=== PATIENT | male | born 1945 | race Caucasian/White ===

== ENCOUNTER 2018-01-15 11:27 | Inpatient (IN) | payer MEDICARE, SELFPAY ==
[2018-01-15] VITALS (9 sets, daily range): BP systolic 65–170; BP diastolic 43–96; PULSE 71–88; RESP 12–16; TEMP 36.2–36.7; O2SAT 98–100; BMI 40.5; BMI 17.9
--- NOTE | 2018-01-15 11:47 | EKG12_ITS ---
Test Reason : SYNCOPE Blood Pressure : / mmHG Vent. Rate : 077 BPM Atrial Rate : 077 BPM P-R Int : 148 ms QRS Dur : 082 ms QT Int : 372 ms P-R-T Axes : 079 020 -68 degrees QTc Int : 420 ms Normal sinus rhythm Nonspecific ST and T wave abnormality Abnormal ECG Confirmed by DAKOTA BURGOS ([id number]), scientific editor JASPER BEDOYA ([id number] on 01/19/2018 8:31:44 AM Referred By: IZABELA/PUSHPA Confirmed By:DAKOTA BURGOS
--- NOTE | 2018-01-15 11:48 | RAD_ITS ---
STUDY: X-RAY CHEST REASON FOR EXAM: Male, 72 years old. Cough. Generalized illness and weakness. TECHNIQUE: AP and lateral views of the chest. COMPARISON: None. FINDINGS: EKG electrodes are seen. Hyperinflation. The lungs are clear. There is no demonstrated pleural abnormality. Normal size heart. Normal mediastinum and yosvany. Normal visualized pulmonary arteries. Normal visualized aortic arch and descending thoracic aorta. Normal visualized thoracic spine. Normal visualized ribs, clavicles, and shoulders. There is no demonstrated abnormality of the visualized soft tissue structures of the upper abdomen. RAD/Chest PA and Lateral IMPRESSION: Hyperinflation. The lungs are clear. Electronically Signed: Romario Wesley MD at 12:53 EDT Tel [phone], Service support ,
[2018-01-15 12:11] LABS: Absolute Lymphocyte Count 1.36 X10^3/ul (0.83-4.51); Absolute Neutrophil Count 5.7 X10^3/uL (2.0-7.7); Basophil# 0.11 X10^3/uL; Basophil% 1.4 % (0-1); Eosinophil# 0.15 X10^3/uL; Eosinophils% 1.9 % (0-5); Hemoglobin 13.1 g/dl (13.0-16.5); Lymphocyte # 1.36 X10^3/ul (4.0); Lymphocyte % 17.2 % (19-41); Mean Corp Hgb Conc 35.4 g/gl (32-36); Mean Corpuscular Hgb 28.9 pg (27.0-32.0); Mean Corpuscular Volume 81.5 fL (80-94); Mean Platelet Vol. 9.9 fl (6.2-12.0); Monocyte# 0.56 X10^3/uL; Monocyte% 7.1 % (0-10); Neutrophil # 5.72 X10^3/uL (2.7-7.7); Neutrophil % 72.3 % (47-70); Platelet Count 231 K/mm3 (150-450); RBC Distribution Width CV 13.2 % (11.6-14.6); RBC Distribution Width SD 38.4 fl (35.1-43.9); Red Blood Count 4.54 M/mm3 (4.6-6.2); White Blood Count 7.9 K/mm3 (4.4-11.0)
[2018-01-15 12:14] LABS: Prothrombin Time (Protime)PT. 12.9 SECONDS (11.7-14.9)
[2018-01-15 12:15] LABS: Partial Thromboplast Time 23.4 Seconds (24.1-36.2)
[2018-01-15 12:25] LABS: AST(SGOT) 16 U/L (15-37); Alanine Aminotransfer ALT/SGPT 20 U/L (16-61); Albumin, Serum 3.8 g/dL (3.2-5.0); Alkaline Phosphatase 82 U/L (45-117); Anion Gap 9 (5-15); BUN 31 mg/dL (7-18); BUN/Creat Ratio 16.8 RATIO (10-20); Bilirubin, Direct 0.19 mg/dL (0.00-0.30); Calcium,Total 9.6 mg/dL (8.5-10.1); Chloride 101 mmol/L (98-107); Creatinine, Serum 1.84 mg/dL (0.70-1.30); EST Glomerular Filtration Rate 39 mL/min (>60); Est Glom Filt Rate - Afr Amer 47 mL/min (>60); Estimated Creatinine Clearance 36.82 ml/min; Globulin 3.4 g/dL (2.2-4.2); Glucose 227 mg/dL (74-106); Potassium 4.1 mmol/L (3.5-5.1); Protein, Total 7.2 g/dL (6.4-8.2); Sodium Level 138 mmol/L (136-145)
[2018-01-15 12:26] LABS: POSITIVE COUNT NO; POSITIVE DIFFERENTIAL NO; POSITIVE MORPHOLOGY NO
--- NOTE | 2018-01-15 14:22 | NURSING ---
pt attempted to urinate with no success. dr updated to given second liter of fluid and hold of on st cathfor now.
[2018-01-15] MEDS: 0.9% Normal Saline 1,000 ML 500 ML IV (14:26)
--- NOTE | 2018-01-15 14:37 | HP.PCM_ITS ---
Problem List (1) Near syncope Status: Acute History of Present Illness Date of Admission: 01/15/18 Chief Complaint: near syncope The patient is a 72 year old M with a history of diabetes was admitted to the ED on 01/15/2018 with a complaint of near syncope in his PCPs office. Patient states he woke up this morning was just not feeling so good. He checked his blood sugar and was 500 so he took 70 units of his insulin. He subsequently had breakfast and then came to see his PCP for a long-standing appointment. Was in the PCPs office he had a near syncopal attack where according to him he just slumped to the floor. He denied any fever or chills, any palpitations, any dizziness or lightheadedness but said he felt weak. His blood sugar checked in the PCPs office was in the 300s. The EMS was therefore called and he was brought to the ED. Patient has not seen a PCP in about 3 years as according to him his former PCP retired and no blood from the new PCPs office called him to make an appointment. He has however been managing to get his diabetes medication prescription which he claims he has been compliant with. He denied any abdominal pain, diarrhea or vomiting and states eating feels sick apart from feeling weak this morning. In the ED, orthostatics were positive and blood pressure was elevated around 1 46/82 at time of review. Vitals were otherwise stable. Chest x-ray showed no acute cardiopulmonary process. Chemistry was si gnificant for creatinine of 1.84 with baseline being less than 1. This patient was from 3 years ago. CBC was unremarkable initial troponin was negative. EKG showed normal sinus rhythm with nonspecific ST changes. He has been admitted to be managed for dehydration, orthostatic hypotension, poorly controlled diabetes and AKA. [] Past Medical History Allergies No Known Allergies Allergy (Verified 01/15/18 11:57) Home Medications: Ambulatory Orders Medication Instructions Recorded Insulin NPH Human Isophane 20 unit SQ BID 01/15/18 [Novolin N] Insulin Regular, Human [Novolin R] 0 unit SC 4X/DAY 01/15/18 Ketorolac Tromethamine [Acular LS] 1 drop LEFT EYE 4X/DAY 01/15/18 Prednisolone Acetate 1 drop LEFT EYE 4X/DAY 01/15/18 Surgical History: no surgical history Psychiatric History: No pertinent psych hx Lives: Alone Smoking Status: Former smoker Alcohol: None - *Family History Maternal History Items: Unknown - patient adopted Paternal History Items: Unknown - patient adopted Sibling History Items: Unknown - patient adopted Review of Systems Constitutional: Reports: Weakness. Denies: Chills, Fever, Malaise, Weight Change, Fatigue Eyes: Denies: Blurred vision, Double vision HEENT: Denies: Head Aches, Sinus Congestion, Sinus Drainage Cardiovascular: Denies: Chest Pain, Heaviness, Light Headedness, Orthopnea, Palpitations, Syncope Respiratory: Denies: Cough, Shortness of breath at rest, Sputum production Gastrointestinal: Denies: Abdominal Pain, Nausea, Vomiting Genitourinary: Denies: Dysuria Musculoskeletal: Denies: Joint Pain, Joint Tenderness Skin: Denies: Rash, Wounds Neurological: Denies: Numbness, Tingling, Focal weakness Psychiatric: Denies: Anxiety, Depression, Homicidal Ideations, Suicidal Ideations Hematologic/ Lymphatic: Denies: Easy Bruising, Easy Bleeding VTE Information - Inpt Only VTE Present on Admission: No VTE Pharm Prophylaxis ordered?: Yes Patient Problems: Active and Suspected Problems Near syncope (Acute) - Physical Exam General: Alert, Oriented x3, Cooperative, No apparent distress HEENT: Atraumatic, PERRLA, EOMI, Normocephalic Neck: Supple, No JVD, Negative Carotid Bruits Lungs: Clear to auscultation, Normal air movement, No rhonchi, No wheeze, No rales Cardiovascular: Regular rate, Regular Rhythm, Normal S1, Normal S2, No murmurs Abdomen: Bowel Sounds Present, Soft, Non Tender, Non-Distended, No Hepato- splenomegaly Extremities: No clubbing, No cyanosis, No edema, Capillary Refill Less than 3 Seconds Skin: No rashes, No breakdown Musculoskeletal: No Tenderness to Palpation of Joints or Extremities Lymphatic: No Cervical, Supraclavicular, or Inguinal Adenopathy Neurological: Cranial nerves II-XII grossly intact Psych/Mental Status: Normal Affect, Appropriate, Alert and oriented to time, place, person, mood and affect Vital Signs Temp Pulse Resp BP Pulse Ox 98.1 F 71 16 146/82 H 99 01/15/18 11:29 01/15/18 14:23 01/15/18 14:23 01/15/18 14:23 01/15/18 14:23 Oxygen Delivery Method Room Air Weight: 274 lb 11.135 oz Body Mass Index (BMI) 40.5 Laboratory Tests Past 24 Hrs 01/15/18 01/15/18 01/15/18 11:44 11:44 11:44 WBC 7.9 RBC 4.54 L Hgb 13.1 Hct 37.0 L MCV 81.5 MCH 28.9 MCHC 35.4 RDW 13.2 RDW Differential 38.4 Plt Count 231 MPV 9.9 Immature Gran % (Auto) 0.100 Neut % (Auto) 72.3 H Lymph % (Auto) 17.2 L [place] % (Auto) 7.1 Eos % (Auto) 1.9 Baso % (Auto) 1.4 H Absolute Neuts (auto) 5.7 Absolute Lymphs (auto) 1.36 Total Counted Not Reportable PT 12.9 INR 1.0 APTT 23.4 L Sodium 138 Potassium 4.1 Chloride 101 Carbon Dioxide 28.0 Anion Gap 9 BUN 31 H Creatinine 1.84 H Estim Creat Clear Calc 36.82 Est GFR (MDRD) Af Amer 47 L Est GFR (MDRD) Non-Af 39 L BUN/Creatinine Ratio 16.8 Glucose 227 H Calcium 9.6 Total Bilirubin 0.60 Direct Bilirubin 0.19 AST 16 ALT 20 Alkaline Phosphatase 82 Troponin I < 0.015 Total Protein 7.2 Albumin 3.8 Globulin 3.4 Diagnostic Data Chest X-Ray 01/15/18 11:48 IMPRESSION: Hyperinflation. The lungs are clear. Electronically Signed: Romario Wesley MD at 12:53 EDT Tel [phone], Service support , Assessment/Plan All Active Problems Near syncope (Acute) 72-year-old with a history of diabetes presenting with a one day complaint of weakness and near syncopal attack. 1. Near syncope due to orthostatic hypotension * orthostatics were positive in ED; hydrated with IVF * says he has been eating and drinking well; denies any excessive thirst or frequency of urination * vitals otherwise stable * admit to Med surg with telemetry * hydrate with IVF NS @ 150cc/hr x 2 bags * check orthostatics * 2. Orthostatic hypotension due to dehydration * as under 1. encouraged to drink adequate oral fluids * 3. Poorly controlled diabetes mellitus * not followed up with PCP in 3 years * says he takes novolin insulin 17IU bid and also tidwm * blood sugar in 500s this morning * check A1C * accuchecks ACHS * continue currrent dose of insulin and adjust as needed * Check lipid panel * 4. CLAUDINE: * Cr is 1.84; baseline ~ 1 from 2 years ago. * Likely prerenal due to dehydration. * Will hydrate with IV fluid and monitor. * 5. Elevated blood pressure: * At review, blood pressure was 146/82. * However when patient was admitted blood pressure was in the 130s systolic. We will not start BP meds yet as he does not carry a diagnosis of hypertension. * We will continue monitoring any blood pressure remains persistently elevated, will start treatment with BP medication. DVT prophylaxis: heparin Code status: full code Code Visit OBSV E&M: 89132 Initial observation care L3
--- NOTE | 2018-01-15 14:37 | NURSING ---
DR AMADOR BARROW
--- NOTE | 2018-01-15 14:48 | NURSING ---
MED SURG CLAUDINE, DEHYDRATION ANNAM
[2018-01-15 16:55] LABS: Bedside Glucose 216 mg/dL (70-110)
[2018-01-15 16:56] LABS: Cholesterol 196 mg/dL (200); High Density Lipoprotein 43 mg/dL; Triglycerides 187 mg/dL; Very Low Density Lipoprotein 37 mg/dL (5-40)
[2018-01-15 17:11] LABS: Hemoglobin A1c 11.3 % (4.2-6.3)
[2018-01-15] MEDS: Insulin Lispro 100 UNIT/ML INSULN.PEN SQ ×2 (17:13→21:37)
[2018-01-15] MEDS: Insulin NPH Human 100 UNITS/ML PEN 20 UNITS SC (17:19)
--- NOTE | 2018-01-15 17:39 | ED.VISSUMM ---
- ER Visit Summary Date of Service: 01/15/18 Chief Complaint: Dizziness History of Present Illness: The patient is a 72 M presenting for evaluation secondary dizziness. Patient has a underlying history of poorly controlled diabetes and hypertension. He has not seen a doctor in multiple years. Patient was going to a primary care physician to establish care, and had multiple presyncopal episodes in the office. Patient's daughter states that he has been having multiple episodes throughout the course of this week. He denies any chest pain shortness of breath or recent infectious signs or symptoms bloody stools or dark tarry stools. His blood sugars typically run in the 2-300 range. Physical Examination: Cachectic male vital signs notable for blood pressure 170/96. Head normocephalic. No JVD noted. Heart regular rate and rhythm. Lungs sounds clear. Abdomen soft nontender. Back nontender. No peripheral edema. 2+ peripheral pulses x4. Skin normal color no rash. Patient was alert and oriented no lateralizing neurologic deficits. Test Results: Chest x-ray shows hyperinflation. EKG shows nonspecific T wave changes in a sinus rate 77. CBC unremarkable, chemistry shows some acute kidney injury creatinine 1.8 BUN of 31 glucose was 227 coagulation studies normal troponin found to be negative. Emergency Department Course and Treatment: Patient presented for evaluation secondary to presyncopal episodes and primary care office. Patient's orthostats were grossly positive here as he went from a blood pressure of 142 a blood pressure of 60 upon standing and almost passed out. Patient was given 2 L normal saline. He has some evidence of acute kidney injury. Patient will be admitted at this point for further hydration and workup. Disposition: Admission Impression: 1. Dehydration with acute kidney injury This note was generated with [employer] dictation software. It may contain incorrect words, spelling, and punctuation that were not noted in review of the chart prior to signing ED Disposition - Plan for ED Patient: Disposition: Acute Care Hospital [facility] Chief Complaint: Syncope
--- NOTE | 2018-01-15 17:43 | ED.DCSUM_ITS ---
- ER Visit Summary Date of Service: 01/15/18 Chief Complaint: Dizziness History of Present Illness: The patient is a 72 M presenting for evaluation secondary dizziness. Patient has a underlying history of poorly controlled diabetes and hypertension. He has not seen a doctor in multiple years. Patient was going to a primary care physician to establish care, and had multiple presyncopal episodes in the office. Patient's daughter states that he has been having multiple episodes throughout the course of this week. He denies any chest pain shortness of breath or recent infectious signs or symptoms bloody stools or dark tarry stools. His blood sugars typically run in the 2-300 range. Physical Examination: Cachectic male vital signs notable for blood pressure 170/96. Head normocephalic. No JVD noted. Heart regular rate and rhythm. Lungs sounds clear. Abdomen soft nontender. Back nontender. No peripheral edema. 2+ peripheral pulses x4. Skin normal color no rash. Patient was alert and oriented no lateralizing neurologic deficits. Test Results: Chest x-ray shows hyperinflation. EKG shows nonspecific T wave changes in a sinus rate 77. CBC unremarkable, chemistry shows some acute kidney injury creatinine 1.8 BUN of 31 glucose was 227 coagulation studies normal troponin found to be negative. Emergency Department Course and Treatment: Patient presented for evaluation secondary to presyncopal episodes and primary care office. Patient's orthostats were grossly positive here as he went from a blood pressure of 142 a blood pressure of 60 upon standing and almost passed out. Patient was given 2 L normal saline. He has some evidence of acute kidney injury. Patient will be admitted at this point for further hydration and workup. Disposition: Admission Impression: 1. Dehydration with acute kidney injury This note was generated with [employer] dictation software. It may contain incorrect words, spelling, and punctuation that were not noted in review of the chart prior to signing ED Disposition - Plan for ED Patient: Disposition: Acute Care Hospital [facility] Chief Complaint: Syncope
[2018-01-15] MEDS: Glucerna Shake 120 ML LIQUID PO (18:19)
[2018-01-15] MEDS: Heparin Injection (Vial) 5,000 UNIT/ML VIAL 5000 UNIT SC (21:37)
[2018-01-15 21:41] LABS: Bedside Glucose 275 mg/dL (70-110)
[2018-01-16] VITALS (16 sets, daily range): BP systolic 80–190; BP diastolic 57–111; PULSE 71–97; RESP 16–18; TEMP 36.6–36.8; O2SAT 98–100
[2018-01-16] MEDS: 0.9% Normal Saline 1,000 ML 125 ML IV (02:30)
[2018-01-16] MEDS: 0.9% Normal Saline 1,000 ML 999 ML IV (04:20)
[2018-01-16] MEDS: 0.9% NaCl Peripheral Flush Adult/Peds IV (05:08)
[2018-01-16] MEDS: Heparin Injection (Vial) 5,000 UNIT/ML VIAL 5000 UNIT SC ×3 (05:08→21:34)
[2018-01-16 05:32] LABS: Absolute Lymphocyte Count 1.23 X10^3/ul (0.83-4.51); Absolute Neutrophil Count 4.7 X10^3/uL (2.0-7.7); Basophil# 0.06 X10^3/uL; Basophil% 0.9 % (0-1); Eosinophil# 0.17 X10^3/uL; Eosinophils% 2.6 % (0-5); Hematocrit 31.3 % (40-54); Hemoglobin 10.8 g/dl (13.0-16.5); Lymphocyte # 1.23 X10^3/ul (4.0); Lymphocyte % 18.8 % (19-41); Mean Corp Hgb Conc 34.5 g/gl (32-36); Mean Corpuscular Hgb 28.5 pg (27.0-32.0); Mean Corpuscular Volume 82.6 fL (80-94); Mean Platelet Vol. 9.3 fl (6.2-12.0); Monocyte# 0.39 X10^3/uL; Neutrophil # 4.69 X10^3/uL (2.7-7.7); Neutrophil % 71.7 % (47-70); Platelet Count 144 K/mm3 (150-450); RBC Distribution Width CV 13.5 % (11.6-14.6); Red Blood Count 3.79 M/mm3 (4.6-6.2); White Blood Count 6.5 K/mm3 (4.4-11.0)
[2018-01-16 05:34] LABS: POSITIVE COUNT NO; POSITIVE DIFFERENTIAL NO; POSITIVE MORPHOLOGY NO
[2018-01-16 05:50] LABS: Anion Gap 6 (5-15); BUN 28 mg/dL (7-18); BUN/Creat Ratio 23.9 RATIO (10-20); Calcium,Total 7.7 mg/dL (8.5-10.1); Chloride 112 mmol/L (98-107); Creatinine, Serum 1.17 mg/dL (0.70-1.30); EST Glomerular Filtration Rate 65 mL/min (>60); Est Glom Filt Rate - Afr Amer 79 mL/min (>60); Estimated Creatinine Clearance 44.96 ml/min; Glucose 117 mg/dL (74-106); Potassium 3.7 mmol/L (3.5-5.1); Sodium Level 142 mmol/L (136-145)
[2018-01-16] MEDS: 0.9% Normal Saline 1,000 ML 150 ML IV ×3 (08:01→21:33)
[2018-01-16 09:06] LABS: Bedside Glucose 196 mg/dL (70-110)
[2018-01-16] MEDS: Glucerna Shake 120 ML LIQUID PO ×2 (09:15→16:55)
[2018-01-16] MEDS: Insulin Lispro 100 UNIT/ML INSULN.PEN SQ ×4 (09:16→21:37)
[2018-01-16] MEDS: Insulin NPH Human 100 UNITS/ML PEN 20 UNITS SC ×2 (09:17→16:56)
--- NOTE | 2018-01-16 09:18 | PCM.PN.HOSP ---
Patient Problems: Active and Suspected Problems Near syncope (Acute) Subjective: Patient was seen and examined. He denies any symptoms of dizziness or chest pain or shortness of breath. Vitals reviewed shows significant orthostatic hypotension this morning. Denies any new or vomiting. Admits to not drinking enough water Vitals/I&O's: Vital Signs Temp Pulse Resp BP Pulse Ox 98.0 F 78 18 166/88 H 100 01/16/18 09:02 01/16/18 09:02 01/16/18 09:02 01/16/18 09:02 01/16/18 09:02 Oxygen Delivery Method Room Air Weight: 54.885 kg Body Mass Index (BMI) 17.9 Orthostatic Vital Signs Start: 01/16/18 02:17 Freq: q24h Status: Active Protocol: Activity Type Activity Date Activity User E-Sign Co-Sign Detail Recorded Client Recorded Date Recorded By Document 01/16/18 02:17 CDS [id number] 01/16/18 02:23 CDS 01/16/18 02:17 Orthostatic Vitals Standing -Blood Pressure (90/60-120/80) 80/57 L -Extremity Use Right Arm -Pulse Rate (60-100) 85 Sitting -Blood Pressure (90/60-120/80) 139/77 H -Extremity Use Right Arm -Pulse Rate (60-100) 80 Lying -Blood Pressure (90/60-120/80) 164/89 H -Extremity Use Right Arm -Pulse Rate (60-100) 78 Intake and Output for Last 24 Hours 01/14/18 01/15/18 01/16/18 23:59 23:59 23:59 Intake Total 821 / 821 1174 / 1174 Balance 821 / 821 1174 / 1174 General: Alert, Oriented x3, Cooperative, No apparent distress, - - Cachectic HEENT: Atraumatic, PERRLA, EOMI, Normocephalic Oral: Moist Mucosa Neck: Supple, No JVD, Negative Carotid Bruits Lungs: Clear to auscultation, Normal air movement Cardiovascular: Regular rate, Regular Rhythm, Normal S1, Normal S2, No murmurs Abdomen: Bowel Sounds Present, Soft, Non Tender, Non-Distended, No Hepato-splenomegaly Extremities: No edema Skin: No rashes, No breakdown Musculoskeletal: No Tenderness to Palpation of Joints or Extremities Lymphatic: No Cervical, Supraclavicular, or Inguinal Adenopathy Neurological: Cranial nerves II-XII grossly intact, Neuro grossly intact Psych/Mental Status: Normal Affect, Appropriate Laboratory Results 01/15/18 11:44: WBC 7.9, RBC 4.54 L, Hgb 13.1, Hct 37.0 L, MCV 81.5, MCH 28.9, MCHC 35.4, RDW 13.2, RDW Differential 38.4, Plt Count 231, MPV 9.9, Immature Gran % (Auto) 0.100, Neut % (Auto) 72.3 H, Lymph % (Auto) 17.2 L, [place] % (Auto) 7.1, Eos % (Auto) 1.9, Baso % (Auto) 1.4 H, Absolute Neuts (auto) 5.7, Absolute Lymphs (auto) 1.36, Total Counted Not Reportable 01/15/18 11:44: PT 12.9, INR 1.0, APTT 23.4 L 01/15/18 11:44: Sodium 138, Potassium 4.1, Chloride 101, Carbon Dioxide 28.0, Anion Gap 9, BUN 31 H, Creatinine 1.84 H, Estim Creat Clear Calc 36.82, Est GFR (MDRD) Af Amer 47 L, Est GFR (MDRD) Non-Af 39 L, BUN/Creatinine Ratio 16.8, Glucose 227 H, Calcium 9.6, Total Bilirubin 0.60, Direct Bilirubin 0.19, AST 16, ALT 20, Alkaline Phosphatase 82, Troponin I < 0.015, Total Protein 7.2, Albumin 3.8, Globulin 3.4 01/15/18 11:44: Triglycerides 187, Cholesterol 196, LDL Cholesterol 116, VLDL Cholesterol 37, HDL Cholesterol 43 01/15/18 11:44: Hemoglobin A1c 11.3 H 01/15/18 16:32: POC Glucose 216 H 01/15/18 21:33: POC Glucose 275 H 01/16/18 05:05: WBC 6.5, RBC 3.79 L, Hgb 10.8 L, Hct 31.3 L, MCV 82.6, MCH 28.5, MCHC 34.5, RDW 13.5, RDW Differential 41.0, Plt Count 144 L, MPV 9.3, Immature Gran % (Auto) 0.000, Neut % (Auto) 71.7 H, Lymph % (Auto) 18.8 L, [place] % (Auto) 6.0, Eos % (Auto) 2.6, Baso % (Auto) 0.9, Absolute Neuts (auto) 4.7, Absolute Lymphs (auto) 1.23, Total Counted Not Reportable 01/16/18 05:05: Sodium 142, Potassium 3.7, Chloride 112 H, Carbon Dioxide 24.0, Anion Gap 6, BUN 28 H, Creatinine 1.17, Estim Creat Clear Calc 44.96, Est GFR (MDRD) Af Amer 79, Est GFR (MDRD) Non-Af 65, BUN/Creatinine Ratio 23.9 H, Glucose 117 H, Calcium 7.7 L 01/16/18 08:56: POC Glucose 196 H Current Medications Dextrose (D50w Syringe) 0 gm IV X1 PRN; Protocol PRN Reason: Hypoglycemia Glucagon () 1 mg IM .X1 PRN PRN Reason: Hypoglycemia Heparin Sodium (Porcine) (Heparin Na) 5,000 unit SC Q8 [facility] Last Admin: 01/16/18 05:08 Dose: 5,000 unit Sodium Chloride () 1,000 mls @ 150 mls/hr IV .[id number] [facility] Last Admin: 01/16/18 08:01 Dose: 150 mls/hr Influenza Virus Vaccine Quadrival (Fluarix/Fluzone) 0.5 ml IM .ONCE ONE Stop: 01/16/18 10:01 Insulin Human Lispro (Humalog Kwikpen (Bkc)) 0 unit SQ ACHS [facility]; Protocol Last Admin: 01/15/18 21:37 Dose: 6 units Insulin Human NPH (Humulin N (Bkc)) 20 units SC BIDAC [facility] Last Admin: 01/15/18 17:19 Dose: 20 units Ketorolac Tromethamine (Acular Ls) 1 drop LEFT EYE 4X/DAY [facility] Magnesium Hydroxide (Milk Of Magnesia) 30 ml PO DAILY PRN PRN PRN Reason: Constipation Nutritional Formula (Lactose Free) (Glucerna Shake) 120 ml PO 4X/DAY [facility] Last Admin: 01/16/18 09:15 Dose: 120 ml Prednisolone Acetate (Pred Forte Eye Drops (1 Ml)) 1 drop LEFT EYE 4X/DAY [facility] Last Admin: 01/15/18 21:35 Dose: Not Given Sodium Chloride () 5 - 30 ml IV UD PRN PRN Reason: SALINE FLUSH Last Admin: 01/16/18 05:08 Dose: 10 ml Medical Necessity - Tobacco Use Smoking Status: Former smoker Tobacco Use: Cigarettes Assessment/Plan All Active Problems Near syncope (Acute) 72-year-old male with past medical history of type II DM, who comes in with complaints of near syncope in his primary care doctor's office 1. Near syncope/orthostatic hypotension, unclear etiology, likely secondary to dehydration/poor p.o. intake/hyperglycemia Positive orthostatic vitals this morning, continued on IV fluids at 150 cc an hour, will check orthostatic vitals every shift, strict I's and O's, Knee-high MILAN hose 2. CLAUDINE related to dehydration, improving with IV fluids, BMP in a.m. 3. Type II DM, uncontrolled, HbA1c is 11.3, continue on NPH 20 units twice daily as well as insulin sliding scale 4. Malnutrition, moderate, BMI 17.9, flue cleaner is consulted 5. Hypertension, blood pressure is elevated on lying, positively orthostatic on standing, will monitor for today, if remains elevated would start treating 6. DVT prophylaxis with heparin subcu Code Visit Inpatient E&M: 92203 Subs Hosp L2
--- NOTE | 2018-01-16 09:31 | PN_ITS ---
Patient Problems: Active and Suspected Problems Near syncope (Acute) Subjective: Patient was seen and examined. He denies any symptoms of dizziness or chest pain or shortness of breath. Vitals reviewed shows significant orthostatic hypotension this morning. Denies any new or vomiting. Admits to not drinking enough water Vitals/I&O's: Vital Signs Temp Pulse Resp BP Pulse Ox 98.0 F 78 18 166/88 H 100 01/16/18 09:02 01/16/18 09:02 01/16/18 09:02 01/16/18 09:02 01/16/18 09:02 Oxygen Delivery Method Room Air Weight: 54.885 kg Body Mass Index (BMI) 17.9 Orthostatic Vital Signs Start: 01/16/18 02:17 Freq: q24h Status: Active Protocol: Activity Type Activity Date Activity User E-Sign Co-Sign Detail Recorded Client Recorded Date Recorded By Document 01/16/18 02:17 CDS [id number] 01/16/18 02:23 CDS 01/16/18 02:17 Orthostatic Vitals Standing -Blood Pressure (90/60-120/80) 80/57 L -Extremity Use Right Arm -Pulse Rate (60-100) 85 Sitting -Blood Pressure (90/60-120/80) 139/77 H -Extremity Use Right Arm -Pulse Rate (60-100) 80 Lying -Blood Pressure (90/60-120/80) 164/89 H -Extremity Use Right Arm -Pulse Rate (60-100) 78 Intake and Output for Last 24 Hours 01/14/18 01/15/18 01/16/18 23:59 23:59 23:59 Intake Total 821 / 821 1174 / 1174 Balance 821 / 821 1174 / 1174 General: Alert, Oriented x3, Cooperative, No apparent distress, - - Cachectic HEENT: Atraumatic, PERRLA, EOMI, Normocephalic Oral: Moist Mucosa Neck: Supple, No JVD, Negative Carotid Bruits Lungs: Clear to auscultation, Normal air movement Cardiovascular: Regular rate, Regular Rhythm, Normal S1, Normal S2, No murmurs Abdomen: Bowel Sounds Present, Soft, Non Tender, Non-Distended, No Hepato-sple nomegaly Extremities: No edema Skin: No rashes, No breakdown Musculoskeletal: No Tenderness to Palpation of Joints or Extremities Lymphatic: No Cervical, Supraclavicular, or Inguinal Adenopathy Neurological: Cranial nerves II-XII grossly intact, Neuro grossly intact Psych/Mental Status: Normal Affect, Appropriate Laboratory Results 01/15/18 11:44: WBC 7.9, RBC 4.54 L, Hgb 13.1, Hct 37.0 L, MCV 81.5, MCH 28.9, MCHC 35.4, RDW 13.2, RDW Differential 38.4, Plt Count 231, MPV 9.9, Immature Gran % (Auto) 0.100, Neut % (Auto) 72.3 H, Lymph % (Auto) 17.2 L, [place] % (Auto) 7.1, Eos % (Auto) 1.9, Baso % (Auto) 1.4 H, Absolute Neuts (auto) 5.7, Absolute Lymphs (auto) 1.36, Total Counted Not Reportable 01/15/18 11:44: PT 12.9, INR 1.0, APTT 23.4 L 01/15/18 11:44: Sodium 138, Potassium 4.1, Chloride 101, Carbon Dioxide 28.0, Anion Gap 9, BUN 31 H, Creatinine 1.84 H, Estim Creat Clear Calc 36.82, Est GFR (MDRD) Af Amer 47 L, Est GFR (MDRD) Non-Af 39 L, BUN/Creatinine Ratio 16.8, Glucose 227 H, Calcium 9.6, Total Bilirubin 0.60, Direct Bilirubin 0.19, AST 16, ALT 20, Alkaline Phosphatase 82, Troponin I < 0.015, Total Protein 7.2, Albumin 3.8, Globulin 3.4 01/15/18 11:44: Triglycerides 187, Cholesterol 196, LDL Cholesterol 116, VLDL Cholesterol 37, HDL Cholesterol 43 01/15/18 11:44: Hemoglobin A1c 11.3 H 01/15/18 16:32: POC Glucose 216 H 01/15/18 21:33: POC Glucose 275 H 01/16/18 05:05: WBC 6.5, RBC 3.79 L, Hgb 10.8 L, Hct 31.3 L, MCV 82.6, MCH 28.5, MCHC 34.5, RDW 13.5, RDW Differential 41.0, Plt Count 144 L, MPV 9.3, Immature Gran % (Auto) 0.000, Neut % (Auto) 71.7 H, Lymph % (Auto) 18.8 L, [place] % (Auto) 6.0, Eos % (Auto) 2.6, Baso % (Auto) 0.9, Absolute Neuts (auto) 4.7, Absolute Lymphs (auto) 1.23, Total Counted Not Reportable 01/16/18 05:05: Sodium 142, Potassium 3.7, Chloride 112 H, Carbon Dioxide 24.0, Anion Gap 6, BUN 28 H, Creatinine 1.17, Estim Creat Clear Calc 44.96, Est GFR (MDRD) Af Amer 79, Est GFR (MDRD) Non-Af 65, BUN/Creatinine Ratio 23.9 H, Glucose 117 H, Calcium 7.7 L 01/16/18 08:56: POC Glucose 196 H Current Medications Dextrose (D50w Syringe) 0 gm IV X1 PRN; Protocol PRN Reason: Hypoglycemia Glucagon () 1 mg IM .X1 PRN PRN Reason: Hypoglycemia Heparin Sodium (Porcine) (Heparin Na) 5,000 unit SC Q8 REPLACED BY [facility] Last Admin: 01/16/18 05:08 Dose: 5,000 unit Sodium Chloride () 1,000 mls @ 150 mls/hr IV .Q6H40M REPLACED BY [facility] Last Admin: 01/16/18 08:01 Dose: 150 mls/hr Influenza Virus Vaccine Quadrival (Fluarix/Fluzone) 0.5 ml IM .ONCE ONE Stop: 01/16/18 10:01 Insulin Human Lispro (Humalog Kwikpen (Bkc)) 0 unit SQ ACHS REPLACED BY [facility]; Protocol Last Admin: 01/15/18 21:37 Dose: 6 units Insulin Human NPH (Humulin N (Bkc)) 20 units SC BIDAC REPLACED BY [facility] Last Admin: 01/15/18 17:19 Dose: 20 units Ketorolac Tromethamine (Acular Ls) 1 drop LEFT EYE 4X/DAY REPLACED BY [facility] Magnesium Hydroxide (Milk Of Magnesia) 30 ml PO DAILY PRN PRN PRN Reason: Constipation Nutritional Formula (Lactose Free) (Glucerna Shake) 120 ml PO 4X/DAY REPLACED BY [facility] Last Admin: 01/16/18 09:15 Dose: 120 ml Prednisolone Acetate (Pred Forte Eye Drops (1 Ml)) 1 drop LEFT EYE 4X/DAY REPLACED BY [facility] Last Admin: 01/15/18 21:35 Dose: Not Given Sodium Chloride () 5 - 30 ml IV UD PRN PRN Reason: SALINE FLUSH Last Admin: 01/16/18 05:08 Dose: 10 ml Medical Necessity - Tobacco Use Smoking Status: Former smoker Tobacco Use: Cigarettes Assessment/Plan All Active Problems Near syncope (Acute) 72-year-old male with past medical history of type II DM, who comes in with complaints of near syncope in his primary care doctor's office 1. Near syncope/orthostatic hypotension, unclear etiology, likely secondary to dehydration/poor p.o. intake/hyperglycemia Positive orthostatic vitals this morning, continued on IV fluids at 150 cc an hour, will check orthostatic vitals every shift, strict I's and O's, Knee-high MILAN hose 2. CLAUDINE related to dehydration, improving with IV fluids, BMP in a.m. 3. Type II DM, uncontrolled, HbA1c is 11.3, continue on NPH 20 units twice daily as well as insulin sliding scale 4. Malnutrition, moderate, BMI 17.9, carbon blocks press operator is consulted 5. Hypertension, blood pressure is elevated on lying, positively orthostatic on standing, will monitor for today, if remains elevated would start treating 6. DVT prophylaxis with heparin subcu Code Visit Inpatient E&M: 81597 Subs Hosp L2
[2018-01-16 12:35] LABS: Bedside Glucose 337 mg/dL (70-110)
--- NOTE | 2018-01-16 15:07 | NURSING ---
Walking in hill at this time. Denies feeling dizzy or lightheaded.
[2018-01-16 17:06] LABS: Bedside Glucose 231 mg/dL (70-110)
[2018-01-16 22:20] LABS: Bedside Glucose 162 mg/dL (70-110)
[2018-01-16] MEDS: hydrALAZINE 20 MG/ML Vial 5 MG IV (22:30)
[2018-01-17] VITALS (13 sets, daily range): BP systolic 107–178; BP diastolic 58–94; PULSE 74–89; RESP 16–18; TEMP 36.6–36.9; O2SAT 99–100
[2018-01-17] MEDS: amLODIPine 5 MG Tablet PO ×2 (02:22→09:20)
[2018-01-17] MEDS: Heparin Injection (Vial) 5,000 UNIT/ML VIAL 5000 UNIT SC ×3 (06:30→22:34)
[2018-01-17] MEDS: Insulin Lispro 100 UNIT/ML INSULN.PEN SQ ×4 (06:32→22:33)
[2018-01-17 06:51] LABS: Bedside Glucose 226 mg/dL (70-110)
[2018-01-17 06:55] LABS: Absolute Lymphocyte Count 0.95 X10^3/ul (0.83-4.51); Absolute Neutrophil Count 2.8 X10^3/uL (2.0-7.7); Basophil# 0.06 X10^3/uL; Basophil% 1.4 % (0-1); Eosinophil# 0.16 X10^3/uL; Eosinophils% 3.7 % (0-5); Hematocrit 30.5 % (40-54); Hemoglobin 10.4 g/dl (13.0-16.5); Lymphocyte # 0.95 X10^3/ul (4.0); Lymphocyte % 22.2 % (19-41); Mean Corp Hgb Conc 34.1 g/gl (32-36); Mean Corpuscular Hgb 28.7 pg (27.0-32.0); Mean Corpuscular Volume 84.3 fL (80-94); Mean Platelet Vol. 9.8 fl (6.2-12.0); Neutrophil % 65.7 % (47-70); Platelet Count 159 K/mm3 (150-450); RBC Distribution Width CV 13.6 % (11.6-14.6); RBC Distribution Width SD 40.4 fl (35.1-43.9); Red Blood Count 3.62 M/mm3 (4.6-6.2); White Blood Count 4.3 K/mm3 (4.4-11.0)
[2018-01-17 07:02] LABS: Anion Gap 7 (5-15); BUN 17 mg/dL (7-18); BUN/Creat Ratio 17.8 RATIO (10-20); Calcium,Total 7.5 mg/dL (8.5-10.1); Chloride 114 mmol/L (98-107); Creatinine, Serum 0.95 mg/dL (0.70-1.30); EST Glomerular Filtration Rate 83 mL/min (>60); Est Glom Filt Rate - Afr Amer 100 mL/min (>60); Estimated Creatinine Clearance 55.37 ml/min; Glucose 208 mg/dL (74-106); Sodium Level 143 mmol/L (136-145)
[2018-01-17 07:14] LABS: POSITIVE COUNT NO; POSITIVE DIFFERENTIAL NO; POSITIVE MORPHOLOGY NO
[2018-01-17] MEDS: Insulin NPH Human 100 UNITS/ML PEN 25 UNITS SC ×2 (09:13→16:32)
[2018-01-17] MEDS: Glucerna Shake 120 ML LIQUID PO ×3 (09:20→22:43)
[2018-01-17] MEDS: 0.9% Normal Saline 1,000 ML 150 ML IV (09:20)
--- NOTE | 2018-01-17 09:23 | PCM.PN.HOSP ---
Patient Problems: Active and Suspected Problems Near syncope (Acute) Subjective: Patient was seen and examined. Remains orthostatic. Blood pressure on lying is elevated. Denies any chest pain or dizziness or palpitations. He was started on amlodipine 5mg last night. Blood sugars remained fairly uncontrolled Objective: Physical exam: General: Alert, Oriented x3, Cooperative, No apparent distress, - - Cachectic HEENT: Atraumatic, PERRLA, EOMI, Normocephalic Oral: Moist Mucosa Neck: Supple, No JVD, Negative Carotid Bruits Lungs: Clear to auscultation, Normal air movement Cardiovascular: Regular rate, Regular Rhythm, Normal S1, Normal S2, No murmurs Abdomen: Bowel Sounds Present, Soft, Non Tender, Non-Distended, No Hepato-splenomegaly Extremities: No edema Skin: No rashes, No breakdown Musculoskeletal: No Tenderness to Palpation of Joints or Extremities Lymphatic: No Cervical, Supraclavicular, or Inguinal Adenopathy Neurological: Cranial nerves II-XII grossly intact, Neuro grossly intact Psych/Mental Status: Normal Affect, Appropriate Vitals/I&O's: Vital Signs Temp Pulse Resp BP Pulse Ox 98.4 F 87 18 144/62 H 99 01/17/18 08:30 01/17/18 08:30 01/17/18 08:30 01/17/18 08:30 01/17/18 08:30 Oxygen Delivery Method Room Air Weight: 54.885 kg Body Mass Index (BMI) 17.9 Orthostatic Vital Signs Start: 01/16/18 02:17 Freq: q24h Status: Active Protocol: Activity Type Activity Date Activity User E-Sign Co-Sign Detail Recorded Client Recorded Date Recorded By Document 01/17/18 06:26 IN [id number] 01/17/18 06:29 IN 01/17/18 06:26 Orthostatic Vitals Standing -Blood Pressure (90/60-120/80 mm Hg) 107/58 L -Extremity Use Left Arm -Pulse Rate (60-100 beats/min) 86 Sitting -Blood Pressure (90/60-120/80 mm Hg) 142/85 H -Extremity Use Left Arm -Pulse Rate (60-100 beats/min) 88 Lying -Blood Pressure (90/60-120/80 mm Hg) 150/79 H -Extremity Use Left Arm -Pulse Rate (60-100 beats/min) 89 Intake and Output for Last 24 Hours 01/15/18 01/16/18 01/17/18 23:59 23:59 23:59 Intake Total 821 / 821 3957 / 3957 2326 / 2326 Output Total 950 / 950 Balance 821 / 821 3007 / 3007 2326 / 2326 Laboratory Results 01/16/18 12:21: POC Glucose 337 H 01/16/18 16:54: POC Glucose 231 H 01/16/18 21:36: POC Glucose 162 H 01/17/18 05:15: WBC 4.3 L, RBC 3.62 L, Hgb 10.4 L, Hct 30.5 L, MCV 84.3, MCH 28.7, MCHC 34.1, RDW 13.6, RDW Differential 40.4, Plt Count 159, MPV 9.8, Immature Gran % (Auto) 0.000, Neut % (Auto) 65.7, Lymph % (Auto) 22.2, [place] % (Auto) 7.0, Eos % (Auto) 3.7, Baso % (Auto) 1.4 H, Absolute Neuts (auto) 2.8, Absolute Lymphs (auto) 0.95, Total Counted Not Reportable 01/17/18 05:15: Sodium 143, Potassium 4.0, Chloride 114 H, Carbon Dioxide 22.0, Anion Gap 7, BUN 17, Creatinine 0.95, Estim Creat Clear Calc 55.37, Est GFR (MDRD) Af Amer 100, Est GFR (MDRD) Non-Af 83, BUN/Creatinine Ratio 17.8, Glucose 208 H, Calcium 7.5 L 01/17/18 06:32: POC Glucose 226 H Current Medications Amlodipine Besylate (Norvasc) 5 mg PO DAILY [facility] Last Admin: 01/17/18 09:20 Dose: 5 mg Dextrose (D50w Syringe) 0 gm IV X1 PRN; Protocol PRN Reason: Hypoglycemia Glucagon () 1 mg IM .X1 PRN PRN Reason: Hypoglycemia Heparin Sodium (Porcine) (Heparin Na) 5,000 unit SC Q8 [facility] Last Admin: 01/17/18 06:30 Dose: 5,000 unit Hydralazine HCl (Apresoline Iv) 5 mg IV Q6H PRN PRN PRN Reason: BLOOD PRESSURE Last Admin: 01/16/18 22:30 Dose: 5 mg Sodium Chloride () 1,000 mls @ 150 mls/hr IV .Q6H40M [facility] Last Admin: 01/17/18 09:20 Dose: 150 mls/hr Insulin Human Lispro (Humalog Kwikpen (Bkc)) 0 unit SQ ACHS [facility]; Protocol Last Admin: 01/17/18 06:32 Dose: 4 units Insulin Human NPH (Humulin N (Bkc)) 25 units SC BIDAC [facility] Last Admin: 01/17/18 09:13 Dose: 25 units Ketorolac Tromethamine (Ketorolac Tromethamine) 1 ml OP 4X/DAY [facility] Last Admin: 01/17/18 09:10 Dose: Not Given Magnesium Hydroxide (Milk Of Magnesia) 30 ml PO DAILY PRN PRN PRN Reason: Constipation Nutritional Formula (Lactose Free) (Glucerna Shake) 120 ml PO 4X/DAY [facility] Last Admin: 01/17/18 09:20 Dose: 120 ml Prednisolone Acetate (Pred Forte Eye Drops (1 Ml)) 1 drop LEFT EYE 4X/DAY [facility] Last Admin: 01/17/18 09:11 Dose: Not Given Sodium Chloride () 5 - 30 ml IV UD PRN PRN Reason: SALINE FLUSH Last Admin: 01/16/18 05:08 Dose: 10 ml Medical Necessity - Tobacco Use Smoking Status: Former smoker Tobacco Use: Cigarettes Assessment/Plan All Active Problems Near syncope (Acute) 72-year-old male with past medical history of type II DM, who comes in with complaints of near syncope in his primary care doctor's office 1. Near syncope/orthostatic hypotension, unclear etiology, likely secondary to dehydration/poor p.o. intake/hyperglycemia Other differential could be diabetic autonomic neuropathy. He remains orthostatic, on IV fluids, will continue IV fluids for now, recheck orthostatics in 3 hours, if improved, will decrease IV fluid rate, MILAN keller 2. CLAUDINE related to dehydration, resolved 3. Type II DM, uncontrolled, HbA1c is 11.3, sugars are uncontrolled, will increase NPH to 25 units twice daily, continue with Accu-Cheks and insulin sliding scale 4. Malnutrition, moderate, BMI 17.9, on supplements, manager technical training is consulted 5. Hypertension, blood pressure is elevated on lying, positively orthostatic on standing, started on amlodipine 5 mg, will continue same 6. DVT prophylaxis with heparin subcu 7. Disposition: Possible discharge tomorrow if patient appears improved Code Visit Inpatient E&M: [id number] Subs Hosp L2
--- NOTE | 2018-01-17 09:29 | PN_ITS ---
Patient Problems: Active and Suspected Problems Near syncope (Acute) Subjective: Patient was seen and examined. Remains orthostatic. Blood pressure on lying is elevated. Denies any chest pain or dizziness or palpitations. He was started on amlodipine 5mg last night. Blood sugars remained fairly uncontrolled Objective: Physical exam: General: Alert, Oriented x3, Cooperative, No apparent distress, - - Cachectic HEENT: Atraumatic, PERRLA, EOMI, Normocephalic Oral: Moist Mucosa Neck: Supple, No JVD, Negative Carotid Bruits Lungs: Clear to auscultation, Normal air movement Cardiovascular: Regular rate, Regular Rhythm, Normal S1, Normal S2, No murmurs Abdomen: Bowel Sounds Present, Soft, Non Tender, Non-Distended, No Hepato- splenomegaly Extremities: No edema Skin: No rashes, No breakdown Musculoskeletal: No Tenderness to Palpation of Joints or Extremities Lymphatic: No Cervical, Supraclavicular, or Inguinal Adenopathy Neurological: Cranial nerves II-XII grossly intact, Neuro grossly intact Psych/Mental Status: Normal Affect, Appropriate Vitals/I&O's: Vital Signs Temp Pulse Resp BP Pulse Ox 98.4 F 87 18 144/62 H 99 01/17/18 08:30 01/17/18 08:30 01/17/18 08:30 01/17/18 08:30 01/17/18 08:30 Oxygen Delivery Method Room Air Weight: 54.885 kg Body Mass Index (BMI) 17.9 Orthostatic Vital Signs Start: 01/16/18 02:17 Freq: q24h Status: Active Protocol: Activity Type Activity Date Activity User E-Sign Co-Sign Detail Recorded Client Recorded Date Recorded By Document 01/17/18 06:26 TN [id number] 01/17/18 06:29 TN 01/17/18 06:26 Orthostatic Vitals Standing -Blood Pressure (90/60-120/80 mm Hg) 107/58 L -Extremity Use Left Arm -Pulse Rate (60-100 beats/min) 86 Sitting -Blood Pressure (90/60-120/80 mm Hg) 142/85 H -Extremity Use Left Arm -Pulse Rate (60-100 beats/min) 88 Lying -Blood Pressure (90/60-120/80 mm Hg) 150/79 H -Extremity Use Left Arm -Pulse Rate (60-100 beats/min) 89 Intake and Output for Last 24 Hours 01/15/18 01/16/18 01/17/18 23:59 23:59 23:59 Intake Total 821 / 821 3957 / 3957 2326 / 2326 Output Total 950 / 950 Balance 821 / 821 3007 / 3007 2326 / 2326 Laboratory Results 01/16/18 12:21: POC Glucose 337 H 01/16/18 16:54: POC Glucose 231 H 01/16/18 21:36: POC Glucose 162 H 01/17/18 05:15: WBC 4.3 L, RBC 3.62 L, Hgb 10.4 L, Hct 30.5 L, MCV 84.3, MCH 28.7, MCHC 34.1, RDW 13.6, RDW Differential 40.4, Plt Count 159, MPV 9.8, Immature Gran % (Auto) 0.000, Neut % (Auto) 65.7, Lymph % (Auto) 22.2, [place] % (Auto) 7.0, Eos % (Auto) 3.7, Baso % (Auto) 1.4 H, Absolute Neuts (auto) 2.8, Absolute Lymphs (auto) 0.95, Total Counted Not Reportable 01/17/18 05:15: Sodium 143, Potassium 4.0, Chloride 114 H, Carbon Dioxide 22.0, Anion Gap 7, BUN 17, Creatinine 0.95, Estim Creat Clear Calc 55.37, Est GFR (MDRD) Af Amer 100, Est GFR (MDRD) Non-Af 83, BUN/Creatinine Ratio 17.8, Glucose 208 H, Calcium 7.5 L 01/17/18 06:32: POC Glucose 226 H Current Medications Amlodipine Besylate (Norvasc) 5 mg PO DAILY [facility] Last Admin: 01/17/18 09:20 Dose: 5 mg Dextrose (D50w Syringe) 0 gm IV X1 PRN; Protocol PRN Reason: Hypoglycemia Glucagon () 1 mg IM .X1 PRN PRN Reason: Hypoglycemia Heparin Sodium (Porcine) (Heparin Na) 5,000 unit SC Q8 [facility] Last Admin: 01/17/18 06:30 Dose: 5,000 unit Hydralazine HCl (Apresoline Iv) 5 mg IV Q6H PRN PRN PRN Reason: BLOOD PRESSURE Last Admin: 01/16/18 22:30 Dose: 5 mg Sodium Chloride () 1,000 mls @ 150 mls/hr IV .Q6H40M [facility] Last Admin: 01/17/18 09:20 Dose: 150 mls/hr Insulin Human Lispro (Humalog Kwikpen (Bkc)) 0 unit SQ ACHS [facility]; Protocol Last Admin: 01/17/18 06:32 Dose: 4 units Insulin Human NPH (Humulin N (Bkc)) 25 units SC BIDAC [facility] Last Admin: 01/17/18 09:13 Dose: 25 units Ketorolac Tromethamine (Ketorolac Tromethamine) 1 ml OP 4X/DAY [facility] Last Admin: 01/17/18 09:10 Dose: Not Given Magnesium Hydroxide (Milk Of Magnesia) 30 ml PO DAILY PRN PRN PRN Reason: Constipation Nutritional Formula (Lactose Free) (Glucerna Shake) 120 ml PO 4X/DAY [facility] Last Admin: 01/17/18 09:20 Dose: 120 ml Prednisolone Acetate (Pred Forte Eye Drops (1 Ml)) 1 drop LEFT EYE 4X/DAY [facility] Last Admin: 01/17/18 09:11 Dose: Not Given Sodium Chloride () 5 - 30 ml IV UD PRN PRN Reason: SALINE FLUSH Last Admin: 01/16/18 05:08 Dose: 10 ml Medical Necessity - Tobacco Use Smoking Status: Former smoker Tobacco Use: Cigarettes Assessment/Plan All Active Problems Near syncope (Acute) 72-year-old male with past medical history of type II DM, who comes in with complaints of near syncope in his primary care doctor's office 1. Near syncope/orthostatic hypotension, unclear etiology, likely secondary to dehydration/poor p.o. intake/hyperglycemia Other differential could be diabetic autonomic neuropathy. He remains orthostatic, on IV fluids, will continue IV fluids for now, recheck orthostatics in 3 hours, if improved, will decrease IV fluid rate, MILAN keller 2. CLAUDINE related to dehydration, resolved 3. Type II DM, uncontrolled, HbA1c is 11.3, sugars are uncontrolled, will increase NPH to 25 units twice daily, continue with Accu-Cheks and insulin sliding scale 4. Malnutrition, moderate, BMI 17.9, on supplements, drawing box tender is consulted 5. Hypertension, blood pressure is elevated on lying, positively orthostatic on standing, started on amlodipine 5 mg, will continue same 6. DVT prophylaxis with heparin subcu 7. Disposition: Possible discharge tomorrow if patient appears improved Code Visit Inpatient E&M: [id number] Subs Hosp L2
[2018-01-17 11:41] LABS: Bedside Glucose 291 mg/dL (70-110)
[2018-01-17] MEDS: KETOROLAC TROMETHAMINE 5 ML DROPS 1 ML OP ×3 (15:59→22:32)
[2018-01-17] MEDS: prednisoLONE eye drops (1 mL) 1 DROP OPTH.BTL 1 DRP LEFT EYE ×3 (16:00→22:33)
[2018-01-17 16:11] LABS: Bedside Glucose 268 mg/dL (70-110)
[2018-01-17] MEDS: 0.9% Normal Saline 1,000 ML 75 ML IV (16:32)
[2018-01-17 22:51] LABS: Bedside Glucose 174 mg/dL (70-110)
[2018-01-18] VITALS (7 sets, daily range): BP systolic 137–181; BP diastolic 77–92; PULSE 75–86; RESP 16; TEMP 36.6–37; O2SAT 99
[2018-01-18] MEDS: Heparin Injection (Vial) 5,000 UNIT/ML VIAL 5000 UNIT SC (05:06)
[2018-01-18] MEDS: amLODIPine 5 MG Tablet PO ×2 (05:07→10:09)
[2018-01-18] MEDS: 0.9% Normal Saline 1,000 ML 75 ML IV (05:08)
[2018-01-18] MEDS: prednisoLONE eye drops (1 mL) 1 DROP OPTH.BTL 1 DRP LEFT EYE (05:13)
[2018-01-18] MEDS: KETOROLAC TROMETHAMINE 5 ML DROPS 1 ML OP (05:15)
[2018-01-18] MEDS: Insulin NPH Human 100 UNITS/ML PEN 25 UNITS SC (08:14)
[2018-01-18] MEDS: Insulin Lispro 100 UNIT/ML INSULN.PEN SQ (08:14)
[2018-01-18 08:35] LABS: Bedside Glucose 190 mg/dL (70-110)
--- NOTE | 2018-01-18 09:01 | PCM.DC ---
- Discharge Diagnoses Current Active Problems: Current Active and Chronic Problems Near syncope (Acute) Reason(s) for Visit for Discharge Instructions: Near syncope, orthostatic hypotension You will use the following diet at home:: Calorie/Carbohydrate Controlled (specify 1200, 1400, etc), Cardiac Your food should be the consistency of: Regular Your liquids should be the consistency of: Regular/Thin Discharge Activity: Return to Normal Activity Additional Instructions: Note the changes to your insulin. Keep a log of your blood sugars and show a log of your blood sugars to your physician. Wear your MILAN hoses, 12 hours on, 12 hours off. Be careful moving from lying to sitting to standing. Continue to keep yourself hydrated. Allergies/Adverse Reactions: Allergies No Known Allergies Allergy (Verified 01/15/18 11:57) Medications to take at Discharge Insulin Regular, Human [Novolin R] 0 unit SC 4X/DAY 01/15/18 Ketorolac Tromethamine [Acular LS] 1 drop LEFT EYE 4X/DAY 01/15/18 Prednisolone Acetate 1 drop LEFT EYE 4X/DAY 01/15/18 Amlodipine [Norvasc] 5 mg PO DAILY #30 tablet 01/18/18 Glucerna Shake 120 ml PO 4X/DAY #100 liquid 01/18/18 Insulin NPH Human [Humulin N Pen] 25 units SC BIDAC pen 01/18/18 The following prescriptions were given: Amlodipine [Norvasc] 5 mg PO DAILY #30 tablet Glucerna Shake 120 ml PO 4X/DAY #100 liquid Primary Care Physician: Deepak Valerio MD [Primary Care Provider] - Please follow up with your Primary Care Physician in: in a week as scheduled Test Results: Test results from this visit will be discussed in further detail at your follow-up appointment, if applicable. When: Primary drug enforcement administration agent as scheduled Proposed Discharge Date: 01/18/18
--- NOTE | 2018-01-18 09:05 | DCINST_ITS ---
- Discharge Diagnoses Current Active Problems: Current Active and Chronic Problems Near syncope (Acute) Reason(s) for Visit for Discharge Instructions: Near syncope, orthostatic hypotension You will use the following diet at home:: Calorie/Carbohydrate Controlled (specify 1200, 1400, etc), Cardiac Your food should be the consistency of: Regular Your liquids should be the consistency of: Regular/Thin Discharge Activity: Return to Normal Activity Additional Instructions: Note the changes to your insulin. Keep a log of your blood sugars and show a log of your blood sugars to your physician. Wear your MILAN hoses, 12 hours on, 12 hours off. Be careful moving from lying to sitting to standing. Continue to keep yourself hydrated. Allergies/Adverse Reactions: Allergies No Known Allergies Allergy (Verified 01/15/18 11:57) Medications to take at Discharge Insulin Regular, Human [Novolin R] 0 unit SC 4X/DAY 01/15/18 Ketorolac Tromethamine [Acular LS] 1 drop LEFT EYE 4X/DAY 01/15/18 Prednisolone Acetate 1 drop LEFT EYE 4X/DAY 01/15/18 Amlodipine [Norvasc] 5 mg PO DAILY #30 tablet 01/18/18 Glucerna Shake 120 ml PO 4X/DAY #100 liquid 01/18/18 Insulin NPH Human [Humulin N Pen] 25 units SC BIDAC pen 01/18/18 The following prescriptions were given: Amlodipine [Norvasc] 5 mg PO DAILY #30 tablet Glucerna Shake 120 ml PO 4X/DAY #100 liquid Primary Care Physician: Deepak Valerio MD [Primary Care Provider] - Please follow up with your Primary Care Physician in: in a week as scheduled Test Results: Test results from this visit will be discussed in further detail at your follow- up appointment, if applicable. When: Primary chief underwriter as scheduled Proposed Discharge Date: 01/18/18
--- NOTE | 2018-01-18 09:05 | DS.PCM_ITS ---
Discharge Date and Diagnosis Date of Admission: 01/15/18 Date of Discharge: 01/18/18 - Primary Discharge Diagnosis Active and Suspected Problems Near syncope (Acute) Hyperglycemia Orthostatic hypotension Severe malnutrition - Secondary Discharge Diagnosis Type II DM Hospital Course and Treatment Imaging Results: Clinical Impression(s) from Imaging Studies Chest X-Ray 01/15/18 11:48 IMPRESSION: Hyperinflation. The lungs are clear. Electronically Signed: Romario Wesley MD at 12:53 EDT Tel [phone], Service support , None Operations: None Procedures: None Summary of Care Provided: 72-year-old male with past medical history of type II DM, who comes in with comp laints of near syncope in his primary care doctor's office. Patient was found to be orthostatic and started on IV fluids. 1. Near syncope/orthostatic hypotension, likely related to diabetic autonomic neuropathy/dehydration/poor p.o. intake/hyperglycemia, patient was found to be persistently orthostatic especially on standing. He was asymptomatic throughout. He received IV fluids throughout his whole stay. He was started on MILAN hoses. He was ambulated around the nurses fell on the day of discharge without any complaints. Discharged on IV fluids, encourage liberal intake of fluids. 2. CLAUDINE related to dehydration, resolved, writing was normal at discharge 3. Type II DM, uncontrolled, HbA1c is 11.3, sugars were uncontrolled during the hospital stay, NPH increased from 20 units to 25 units twice a day. 4. Malnutrition, moderate, BMI 17.9, pouako kura kaupapa maori is consulted, discharged on nutritional supplement 5. Hypertension: Noted that blood pressure was elevated on lying, although he wa s positively orthostatic on standing, started on amlodipine 5 mg, this was increased to 10 mg daily on discharge. He needs to follow-up with his primary care doctor for blood pressure evaluations. Subjective: On the day of discharge, patient felt well. Denied any new complaints. No acute events overnight Objective: Physical exam: General: Alert, Oriented x3, Cooperative, No apparent distress, - - Cachectic HEENT: Atraumatic, PERRLA, EOMI, Normocephalic Oral: Moist Mucosa Neck: Supple, No JVD, Negative Carotid Bruits Lungs: Clear to auscultation, Normal air movement Cardiovascular: Regular rate, Regular Rhythm, Normal S1, Normal S2, No murmurs Abdomen: Bowel Sounds Present, Soft, Non Tender, Non-Distended, No Hepato- splenomegaly Extremities: No edema Skin: No rashes, No breakdown Musculoskeletal: No Tenderness to Palpation of Joints or Extremities Lymphatic: No Cervical, Supraclavicular, or Inguinal Adenopathy Neurological: Cranial nerves II-XII grossly intact, Neuro grossly intact Psych/Mental Status: Normal Affect, Appropriate - Physical Exam Vital Signs Temp Pulse Resp BP Pulse Ox 98 F 76 16 157/78 H 99 01/18/18 04:00 01/18/18 07:04 01/18/18 04:00 01/18/18 07:04 01/18/18 04:00 Oxygen Delivery Method Room Air Weight: 54.885 kg Body Mass Index (BMI) 17.9 Orthostatic Vital Signs Start: 01/16/18 02:17 Freq: q24h Status: Active Protocol: Activity Type Activity Date Activity User E-Sign Co-Sign Detail Recorded Client Recorded Date Recorded By Document 01/18/18 04:56 DZ [id number] 01/18/18 05:00 DZ 01/18/18 04:56 Orthostatic Vitals Standing -Blood Pressure (90/60-120/80 mm Hg) 137/77 H -Extremity Use Right Arm Sitting -Blood Pressure (90/60-120/80 mm Hg) 163/91 H -Extremity Use Right Arm -Pulse Rate (60-100 beats/min) 81 Lying -Blood Pressure (90/60-120/80 mm Hg) 181/91 H -Extremity Use Right Arm -Pulse Rate (60-100 beats/min) 78 Intake and Output for Last 24 Hours 01/16/18 01/17/18 01/18/18 23:59 23:59 23:59 Intake Total 3957 / 3957 3676 / 3676 1894 / 1894 Output Total 950 / 950 1700 / 1700 Balance 3007 / 3007 1975 / 1975 189 / 189 POC Glucose 01/18/18 01/17/18 01/17/18 08:12 22:28 16:04 POC Glucose 190 H 174 H 268 H 01/17/18 11:33 POC Glucose 291 H Discharge Diet: Low fat/ Low Cholesterol, 2000 mg Sodium Diet, Carb Control Diet Discharge Activity: Return to Normal Activity Home Medications: Medications to take at Discharge Insulin Regular, Human [Novolin R] 0 unit SC 4X/DAY 01/15/18 Ketorolac Tromethamine [Acular LS] 1 drop LEFT EYE 4X/DAY 01/15/18 Prednisolone Acetate 1 drop LEFT EYE 4X/DAY 01/15/18 Amlodipine [Norvasc] 10 mg PO DAILY #30 tablet 01/18/18 Glucerna Shake 120 ml PO 4X/DAY #100 liquid 01/18/18 Insulin NPH Human [Humulin N Pen] 25 units SC BIDAC pen 01/18/18 Following Prescrptions Were Given to Patient: Amlodipine [Norvasc] 10 mg PO DAILY #30 tablet Glucerna Shake 120 ml PO 4X/DAY #100 liquid Primary Care Physician: Deepak Valerio MD [Primary Care Provider] - Please follow up with your Primary Care Physician in: in a week as scheduled When: Primary customer supply chain analyst as scheduled Disposition: Home Minutes spent on discharge:: 41 Patient Condition:: Stable Medical Necessity - Tobacco Use Smoking Status: Former smoker Tobacco Use: Cigarettes Meaningful Use Info Meaningful Use Diagnoses (Choose all that apply): None applicable Code Visit Inpatient E&M: 34363 Disch Hosp
[2018-01-18] MEDS: Glucerna Shake 120 ML LIQUID PO (09:45)
== END 2018-01-18 11:00 | disposition home or self-care (01) | DRG 683 ==
LOC: ED 14:52 → MS2 15:51
PROVIDERS: Admitting Provider Student in an Organized Health Care Education/Training Program; Emergency Provider Emergency Medicine; Family Provider Family Medicine; PCP Family Medicine; Visit Provider Internal Medicine
DX: N17.9 Acute kidney failure, unspecified (principal); Z68.1 Body mass index [BMI] 19.9 or less, adult; R64 Cachexia; E44.0 Moderate protein-calorie malnutrition; E11.65 Type 2 diabetes mellitus with hyperglycemia; E86.0 Dehydration; I95.1 Orthostatic hypotension; E11.43 Type 2 diabetes mellitus with diabetic autonomic (poly)neuropathy; Z23 Encounter for immunization; Z79.4 Long term (current) use of insulin
CPT/HCPCS: 36415; 71046; 80048; 80061; 80076; 82962; 83036; 84484; 85025; 85610; 85730; 93005; 97165; 97802; 99285; J7030; J7040; 90686; A4216

== ENCOUNTER 2018-02-28 13:02 | Inpatient (IN) | payer MEDICARE, SELFPAY ==
[2018-02-28] VITALS (16 sets, daily range): BP systolic 100–179; BP diastolic 44–72; PULSE 82–96; RESP 14–21; TEMP 36.6–36.7; O2SAT 96–100; BMI 19.5
--- NOTE | 2018-02-28 13:29 | EKG12_ITS ---
Test Reason : DYSRHYTHMIA Blood Pressure : / mmHG Vent. Rate : 090 BPM Atrial Rate : 090 BPM P-R Int : 148 ms QRS Dur : 088 ms QT Int : 362 ms P-R-T Axes : 090 -11 084 degrees QTc Int : 442 ms Normal sinus rhythm Normal ECG Confirmed by FARHAN SMART, FIOR ([id number]), acquisitions editor JASPER BEDOYA ([id number] on 03/02/2018 8:50:22 AM Referred By: John Cuba Confirmed By:FIOR REAL MD
--- NOTE | 2018-02-28 13:31 | ED.VISSUMM ---
- ER Visit Summary Date of Service: 02/28/18 Chief Complaint: Fatigue, legs giving out History of Present Illness: The patient is a 72 M who presents with the above symptoms. Is been ongoing for 3 days. He had a similar episode in December and was admitted. He had AK I and dehydration at that time. He was hypertensive so he was placed on amlodipine. He has been out of this for a short period of time. He has been wearing compression stockings. However, he states when he walks around his legs will give out. He did have an episode of chest pain and palpitations this morning. It lasted about 5-10 minutes. He denies any trauma or LOC. Physical Examination: Vital signs reviewed. HEENT exam unremarkable. Heart is regular rate and rhythm without murmurs. Lungs are clear to auscultation. Abdomen is soft and nontender. Extremities reveal no edema. Skin exam normal. Neurologic exam normal. Test Results: CBC unremarkable. Sodium is 130, potassium 5.2. Anion gap is 20. Glucose is 632. Creatinine 2.27. He has moderate serum ketones Emergency Department Course and Treatment: Patient was started on 2 L of saline. He was then started on insulin drip. Patient was discussed with the hospitalist he will be admitted to the ICU. Treatment Plan: [] Disposition: Admit Impression: Diabetic ketoacidosis, acute kidney injury This note was generated with [employer] dictation software. It may contain incorrect words, spelling, and punctuation that were not noted in review of the chart prior to signing ED Disposition - Plan for ED Patient: Chief Complaint: Fatigue Referrals: Deepak Valerio MD [Primary Care Provider] -
[2018-02-28] MEDS: 0.9% Normal Saline 1,000 ML 1000 ML IV (13:36)
[2018-02-28 13:51] LABS: Absolute Neutrophil Count 8.8 X10^3/uL (2.0-7.7); Basophil% 0.9 % (0-1); Eosinophil# 0.06 X10^3/uL; Eosinophils% 0.6 % (0-5); Hematocrit 39.7 % (40-54); Hemoglobin 13.6 g/dl (13.0-16.5); Lymphocyte % 11.3 % (19-41); Mean Corp Hgb Conc 34.3 g/gl (32-36); Mean Corpuscular Hgb 28.3 pg (27.0-32.0); Mean Corpuscular Volume 82.7 fL (80-94); Mean Platelet Vol. 10.2 fl (6.2-12.0); Monocyte# 0.43 X10^3/uL; Neutrophil # 8.84 X10^3/uL (2.7-7.7); Neutrophil % 83.1 % (47-70); Platelet Count 241 K/mm3 (150-450); RBC Distribution Width SD 39.1 fl (35.1-43.9); White Blood Count 10.6 K/mm3 (4.4-11.0)
[2018-02-28 13:52] LABS: Differential Indicated SCAN CRITERIA MET; POSITIVE COUNT NO; POSITIVE DIFFERENTIAL NO; POSITIVE MORPHOLOGY YES
[2018-02-28 14:09] LABS: ALB/GLOB Ratio 1.2 RATIO (0.9-2.4); AST(SGOT) 10 U/L (15-37); Alanine Aminotransfer ALT/SGPT 16 U/L (16-61); Alkaline Phosphatase 103 U/L (45-117); Anion Gap 20 (5-15); BUN 49 mg/dL (7-18); BUN/Creat Ratio 21.6 RATIO (10-20); Calcium,Total 9.6 mg/dL (8.5-10.1); Chloride 89 mmol/L (98-107); Creatinine, Serum 2.27 mg/dL (0.70-1.30); EST Glomerular Filtration Rate 30 mL/min (>60); Est Glom Filt Rate - Afr Amer 37 mL/min (>60); Estimated Creatinine Clearance 26.81 ml/min; Globulin 3.4 g/dL (2.2-4.2); Glucose 632 mg/dL (74-106); Potassium 5.2 mmol/L (3.5-5.1); Protein, Total 7.4 g/dL (6.4-8.2); Sodium Level 130 mmol/L (136-145)
[2018-02-28 14:22] LABS: Differential Comment SCANNED
[2018-02-28] MEDS: 0.9% Normal Saline 1,000 ML 999 ML IV (15:05)
[2018-02-28 15:11] LABS: Bedside Glucose > 500 mg/dL (70-110)
[2018-02-28] MEDS: 0.9% Normal Saline 1,000 ML 500 ML IV (16:40)
[2018-02-28 17:49] LABS: Anion Gap 14 (5-15); BUN 48 mg/dL (7-18); BUN/Creat Ratio 24.5 RATIO (10-20); Calcium,Total 8.7 mg/dL (8.5-10.1); Chloride 106 mmol/L (98-107); Creatinine, Serum 1.96 mg/dL (0.70-1.30); EST Glomerular Filtration Rate 36 mL/min (>60); Est Glom Filt Rate - Afr Amer 44 mL/min (>60); Estimated Creatinine Clearance 31.05 ml/min; Glucose 156 mg/dL (74-106); Potassium 4.3 mmol/L (3.5-5.1); Sodium Level 142 mmol/L (136-145)
[2018-02-28 18:01] LABS: Bedside Glucose 333 mg/dL (70-110)
[2018-02-28 18:01] LABS: Bedside Glucose 193 mg/dL (70-110)
--- NOTE | 2018-02-28 18:02 | HP.PCM_ITS ---
Problem List (1) DKA (diabetic ketoacidoses) Status: Acute Qualifiers: Diabetes mellitus type: type 2 Diabetes mellitus complication detail: without coma Qualified Code(s): E11.10 - Type 2 diabetes mellitus with ketoacidosis without coma (2) Generalized weakness Status: Acute History of Present Illness Date of Admission: 02/28/18 Chief Complaint: DKA, generalized weakness The patient is a 72 year old M was seen in the emergency room at [facility] with a chief complaint of malaise and generalized weakness. Patient had been seen here for dehydration and uncontrolled blood sugar in December 2017, patient told the emergency room physician today that his prescription for Norvasc ran out and he was not able to see a physician-he states they were problems getting in to see the physician in his office. Patient does say that he was taking his insulin which he obtains [id number] at [facility]. Labs in the emergency room showed a normal white blood cell count at 10.6, patient's creatinine was elevated at 2.27, BUN was 49, potassium was 5.2, and sodium was 130. Patient's glucose was 632. Patient's a nion gap was 20, his acetone level was moderately high. Patient was admitted to ICU for DKA and acute kidney injury. Past Medical History Allergies No Known Allergies Allergy (Verified 01/15/18 11:57) Home Medications: Ambulatory Orders Medication Instructions Recorded Insulin Regular, Human [Novolin R] 0 unit SC 4X/DAY 01/15/18 Ketorolac Tromethamine [Acular LS] 1 drop LEFT EYE 4X/DAY 01/15/18 Prednisolone Acetate 1 drop LEFT EYE 4X/DAY 01/15/18 Insulin NPH Human [Humulin N Pen] 25 units SC BIDAC pen 01/18/18 Amlodipine [Norvasc] 5 mg PO DAILY 02/28/18 Surgical History: no surgical history Psychiatric History: No pertinent psych hx Lives: Alone Smoking Status: Former smoker Tobacco Use: Non-smoker Alcohol: None Drugs: None - *Family History Maternal History Items: Unknown - patient adopted Paternal History Items: Unknown - patient adopted Sibling History Items: Unknown - patient adopted Review of Systems Constitutional: Reports: Malaise, Weakness, Fatigue. Denies: Anorexia, Chills, Fever, Night Sweats Eyes: Denies: Blurred vision, Cataracts, Conjunctivae Inflammation, Double vision, Drainage, Redness HEENT: Denies: Difficulty Swallowing, Dysphasia, Ear Pain, Eye Pain, Hearing Changes, Nasal bleeding, Nasal Congestion, Post Nasal Drip Cardiovascular: Denies: Chest Pain, Claudication, Chest Pressure, Chest Tightness, Edema, Heaviness Respiratory: Denies: Cough, Hemoptysis, Pleuritic Pain, Shortness of Breath Gastrointestinal: Denies: Constipation, Diarrhea, Hematochezia, Nausea Genitourinary: Denies: Frequency, Hematuria, Nocturia, Retention Musculoskeletal: Denies: Back Pain, Foot Pain, Hand Pain, Joint swelling, Joint Tenderness, Leg Pain Skin: Denies: Dryness, Jaundice, Pruritis, Rash Neurological: Denies: Double vision, Change in Speech, Focal weakness, Headaches, Incoordination, Numbness Psychiatric: Denies: Anxiety, Depression, Homicidal Ideations VTE Information - Inpt Only VTE Present on Admission: No VTE Mechan Device Prophylaxis: None VTE Pharm Prophylaxis ordered?: Yes Patient Problems: Active and Suspected Problems DKA (diabetic ketoacidoses) (Acute) Generalized weakness (Acute) - Physical Exam General: Alert, Oriented x3, Cooperative, No apparent distress, - - Patient is cachectic appearing and his hygiene is poor HEENT: Atraumatic, PERRLA, EOMI, Normocephalic Oral: Dry Mucosa Neck: Supple, No JVD, Negative Carotid Bruits, No Nuchal Rigidity, Trachea Midline, Thyroid Normal Size and Texture Lungs: Clear to auscultation, Normal air movement, No rhonchi, No wheeze, No rales Cardiovascular: Regular rate, Regular Rhythm, Normal S1, Normal S2, No murmurs, No Ectopic Activity, PMI Normal, No rub noted, No Gallop Abdomen: Bowel Sounds Present, Soft, Non Tender, Non-Distended, No hernias noted Extremities: No clubbing, No cyanosis, No edema, Capillary Refill Less than 3 Seconds Skin: No rashes, No breakdown Musculoskeletal: No Tenderness to Palpation of Joints or Extremities Neurological: Cranial nerves II-XII grossly intact, Neuro grossly intact, Sensory exam intact to light touch and pain, Coordination normal Psych/Mental Status: Normal Affect, Appropriate, Alert and oriented to time, place, person, mood and affect Vital Signs Temp Pulse Resp BP Pulse Ox 98.1 F 82 16 131/65 H 96 02/28/18 13:04 02/28/18 17:00 02/28/18 17:00 02/28/18 17:00 02/28/18 17:00 Oxygen Delivery Method Room Air Weight: 63.503 kg Body Mass Index (BMI) 19.5 Finger Stick Blood Glucose 193 Laboratory Tests Past 24 Hrs 02/28/18 02/28/18 02/28/18 13:24 13:24 13:24 WBC 10.6 RBC 4.80 Hgb 13.6 Hct 39.7 L MCV 82.7 MCH 28.3 MCHC 34.3 RDW 13.0 RDW Differential 39.1 Plt Count 241 MPV 10.2 Immature Gran % (Auto) 0.100 Neut % (Auto) 83.1 H Lymph % (Auto) 11.3 L [place] % (Auto) 4.0 Eos % (Auto) 0.6 Baso % (Auto) 0.9 Absolute Neuts (auto) 8.8 H Absolute Lymphs (auto) 1.20 Total Counted Not Reportable Differential Comment SCANNED Sodium 130 L Potassium 5.2 H Chloride 89 L Carbon Dioxide 21.0 Anion Gap 20 H BUN 49 H Creatinine 2.27 H Estim Creat Clear Calc 26.81 Est GFR (MDRD) Af Amer 37 L Est GFR (MDRD) Non-Af 30 L BUN/Creatinine Ratio 21.6 H Glucose 632 H* Calcium 9.6 Total Bilirubin 0.80 AST 10 L ALT 16 Alkaline Phosphatase 103 Troponin I < 0.015 Total Protein 7.4 Albumin 4.0 Globulin 3.4 Albumin/Globulin Ratio 1.2 Acetone Level MODERATE H 02/28/18 17:10 WBC RBC Hgb Hct MCV MCH MCHC RDW RDW Differential Plt Count MPV Immature Gran % (Auto) Neut % (Auto) Lymph % (Auto) [place] % (Auto) Eos % (Auto) Baso % (Auto) Absolute Neuts (auto) Absolute Lymphs (auto) Total Counted Differential Comment Sodium 142 Potassium 4.3 Chloride 106 Carbon Dioxide 22.0 Anion Gap 14 BUN 48 H Creatinine 1.96 H Estim Creat Clear Calc 31.05 Est GFR (MDRD) Af Amer 44 L Est GFR (MDRD) Non-Af 36 L BUN/Creatinine Ratio 24.5 H Glucose 156 H Calcium 8.7 Total Bilirubin AST ALT Alkaline Phosphatase Troponin I Total Protein Albumin Globulin Albumin/Globulin Ratio Acetone Level POC Glucose 02/28/18 15:02 POC Glucose > 500 H* Assessment/Plan All Active Problems Near syncope (Resolved) DKA (diabetic ketoacidoses) (Acute) Generalized weakness (Acute) #1 acute DKA without coma-patient will be admitted to ICU, IV insulin will be administered via drip, frequent labs will be obtained on the patient, fluids will be administered. #2 uncontrolled type 2 diabetes-it is unknown whether the patient has been compliant with his insulin at home, patient states that he has but I have reason to believe he is not telling the truth. #3 acute kidney injury-secondary to dehydration from acute DKA and uncontrolled type 2 diabetes-labs will be monitored #4 essential hypertension-I will hold the patient's Norvasc for now #5 diabetic retinopathy-patient has eyedrops, he will continue on his eyedrops while in the hospital #6 probable self-neglect/noncompliance-patient told me the reason why he is not been to his physician's office is because he has not been able to obtain a ride to his physician's office, he also tells me that he has not talked to his daughter in 6 weeks. I talked to his daughter by phone before the patient was admitted to the ICU and she states that she has talked to her father recently, she states that she was estranged from him for a number of years and takes him to his appointments. I am not sure what the actual truth is, I do not know if the patient can actually care for himself at home. director of consulting services will need to talk with the patient. Code Visit Inpatient E&M: 02846 Init Hosp L3
[2018-02-28] MEDS: 0.9% Normal Saline 1,000 ML 125 ML IV (19:15)
[2018-02-28 19:21] LABS: Bedside Glucose 130 mg/dL (70-110)
[2018-02-28 19:21] LABS: Bedside Glucose 166 mg/dL (70-110)
[2018-02-28 20:11] LABS: Bedside Glucose 200 mg/dL (70-110)
[2018-02-28 20:20] LABS: Anion Gap 15 (5-15); BUN 48 mg/dL (7-18); BUN/Creat Ratio 26.7 RATIO (10-20); Calcium,Total 8.3 mg/dL (8.5-10.1); Chloride 106 mmol/L (98-107); EST Glomerular Filtration Rate 40 mL/min (>60); Est Glom Filt Rate - Afr Amer 48 mL/min (>60); Estimated Creatinine Clearance 33.81 ml/min; Glucose 200 mg/dL (74-106); Potassium 4.9 mmol/L (3.5-5.1); Sodium Level 142 mmol/L (136-145)
[2018-02-28] MEDS: Ondansetron 4 MG/2 ML Vial IV (20:29)
[2018-02-28] MEDS: Insulin NPH Human 100 UNITS/ML PEN 25 UNITS SC (20:29)
[2018-02-28] MEDS: Heparin Injection (Vial) 5,000 UNIT/ML VIAL 5000 UNIT SC (22:49)
[2018-02-28 23:01] LABS: Bedside Glucose 253 mg/dL (70-110)
[2018-03-01] VITALS (20 sets, daily range): BP systolic 118–188; BP diastolic 36–90; PULSE 77–98; RESP 13–20; TEMP 36.6–37.8; O2SAT 96–100
[2018-03-01] MEDS: 0.9% Normal Saline 1,000 ML 125 ML IV (03:39)
[2018-03-01 05:01] LABS: Absolute Lymphocyte Count 0.83 X10^3/ul (0.83-4.51); Absolute Neutrophil Count 10.5 X10^3/uL (2.0-7.7); Basophil# 0.02 X10^3/uL; Basophil% 0.2 % (0-1); Hematocrit 32.5 % (40-54); Hemoglobin 11.2 g/dl (13.0-16.5); Lymphocyte # 0.83 X10^3/ul (4.0); Lymphocyte % 7.2 % (19-41); Mean Corp Hgb Conc 34.5 g/gl (32-36); Mean Corpuscular Hgb 28.9 pg (27.0-32.0); Mean Corpuscular Volume 83.8 fL (80-94); Mean Platelet Vol. 9.9 fl (6.2-12.0); Monocyte# 0.27 X10^3/uL; Monocyte% 2.3 % (0-10); Neutrophil # 10.46 X10^3/uL (2.7-7.7); Neutrophil % 90.1 % (47-70); Platelet Count 190 K/mm3 (150-450); RBC Distribution Width CV 13.3 % (11.6-14.6); RBC Distribution Width SD 39.4 fl (35.1-43.9); Red Blood Count 3.88 M/mm3 (4.6-6.2); White Blood Count 11.6 K/mm3 (4.4-11.0)
[2018-03-01 05:04] LABS: POSITIVE COUNT NO; POSITIVE DIFFERENTIAL NO; POSITIVE MORPHOLOGY NO
[2018-03-01] MEDS: Mag Hydrox/Al Hydrox/Simeth 30 ML UDC 15 ML PO (05:08)
[2018-03-01] MEDS: Heparin Injection (Vial) 5,000 UNIT/ML VIAL 5000 UNIT SC ×3 (05:09→22:30)
[2018-03-01 05:27] LABS: Anion Gap 20 (5-15); BUN 50 mg/dL (7-18); BUN/Creat Ratio 26.9 RATIO (10-20); Calcium,Total 8.1 mg/dL (8.5-10.1); Chloride 107 mmol/L (98-107); Creatinine, Serum 1.86 mg/dL (0.70-1.30); EST Glomerular Filtration Rate 38 mL/min (>60); Est Glom Filt Rate - Afr Amer 46 mL/min (>60); Estimated Creatinine Clearance 32.72 ml/min; Glucose 315 mg/dL (74-106); Potassium 5.2 mmol/L (3.5-5.1); Sodium Level 145 mmol/L (136-145)
[2018-03-01 06:36] LABS: Bedside Glucose 338 mg/dL (70-110)
[2018-03-01 07:40] LABS: Bedside Glucose 297 mg/dL (70-110)
[2018-03-01 08:40] LABS: Bedside Glucose 228 mg/dL (70-110)
[2018-03-01] MEDS: Dext 5%-0.45% NS 1,000 ML 150 ML IV (09:00)
[2018-03-01 09:31] LABS: Bedside Glucose 191 mg/dL (70-110)
--- NOTE | 2018-03-01 10:21 | PCM.PN.HOSP ---
Patient Problems: Active and Suspected Problems DKA (diabetic ketoacidoses) (Acute) Generalized weakness (Acute) Subjective: Feels better. No NV. States he has been taking his insulin as instructed. Vitals/I&O's: Vital Signs Temp Pulse Resp BP Pulse Ox 37.5 C H 90 18 153/45 H 99 03/01/18 08:00 03/01/18 10:00 03/01/18 10:00 03/01/18 10:00 03/01/18 10:00 Oxygen Delivery Method Room Air Weight: 54.1 kg Body Mass Index (BMI) 19.5 Finger Stick Blood Glucose 228 Intake and Output for Last 24 Hours 02/27/18 02/28/18 03/01/18 23:59 23:59 23:59 Intake Total 3100 / 3100 2578.3 / 2578.3 Balance 3100 / 3100 2578.3 / 2578.3 General: Alert, No apparent distress HEENT: Atraumatic, Normocephalic Oral: Moist Mucosa, No Gingival or Mucosal Lesions/ Ulcerations Neck: No Nodes, Thyroid Normal Size and Texture Lungs: Clear to auscultation, Normal air movement, No rhonchi, No wheeze Cardiovascular: Regular rate, Regular Rhythm, Normal S1, Normal S2, No murmurs Abdomen: Bowel Sounds Present, Soft, Non Tender, Non-Distended, No Hepato-splenomegaly Extremities: No edema, No Calf Tenderness Psych/Mental Status: Normal Affect, Appropriate Laboratory Results 02/28/18 13:24: WBC 10.6, RBC 4.80, Hgb 13.6, Hct 39.7 L, MCV 82.7, MCH 28.3, MCHC 34.3, RDW 13.0, RDW Differential 39.1, Plt Count 241, MPV 10.2, Immature Gran % (Auto) 0.100, Neut % (Auto) 83.1 H, Lymph % (Auto) 11.3 L, [place] % (Auto) 4.0, Eos % (Auto) 0.6, Baso % (Auto) 0.9, Absolute Neuts (auto) 8.8 H, Absolute Lymphs (auto) 1.20, Total Counted Not Reportable, Differential Comment SCANNED 02/28/18 13:24: Sodium 130 L, Potassium 5.2 H, Chloride 89 L, Carbon Dioxide 21.0, Anion Gap 20 H, BUN 49 H, Creatinine 2.27 H, Estim Creat Clear Calc 26.81, Est GFR (MDRD) Af Amer 37 L, Est GFR (MDRD) Non-Af 30 L, BUN/Creatinine Ratio 21.6 H, Glucose 632 H*, Calcium 9.6, Total Bilirubin 0.80, AST 10 L, ALT 16, Alkaline Phosphatase 103, Troponin I < 0.015, Total Protein 7.4, Albumin 4.0, Globulin 3.4, Albumin/Globulin Ratio 1.2 02/28/18 13:24: Acetone Level MODERATE H 02/28/18 15:02: POC Glucose > 500 H* 02/28/18 16:12: POC Glucose 333 H 02/28/18 17:06: POC Glucose 193 H 02/28/18 17:10: Sodium 142, Potassium 4.3, Chloride 106, Carbon Dioxide 22.0, Anion Gap 14, BUN 48 H, Creatinine 1.96 H, Estim Creat Clear Calc 31.05, Est GFR (MDRD) Af Amer 44 L, Est GFR (MDRD) Non-Af 36 L, BUN/Creatinine Ratio 24.5 H, Glucose 156 H, Calcium 8.7 02/28/18 17:56: POC Glucose 130 H 02/28/18 19:15: POC Glucose 166 H 02/28/18 20:00: Sodium 142, Potassium 4.9, Chloride 106, Carbon Dioxide 21.0, Anion Gap 15, BUN 48 H, Creatinine 1.80 H, Estim Creat Clear Calc 33.81, Est GFR (MDRD) Af Amer 48 L, Est GFR (MDRD) Non-Af 40 L, BUN/Creatinine Ratio 26.7 H, Glucose 200 H, Calcium 8.3 L 02/28/18 20:06: POC Glucose 200 H 02/28/18 22:52: POC Glucose 253 H 03/01/18 04:45: WBC 11.6 H, RBC 3.88 L, Hgb 11.2 L, Hct 32.5 L, MCV 83.8, MCH 28.9, MCHC 34.5, RDW 13.3, RDW Differential 39.4, Plt Count 190, MPV 9.9, Immature Gran % (Auto) 0.200, Neut % (Auto) 90.1 H, Lymph % (Auto) 7.2 L, [place] % (Auto) 2.3, Eos % (Auto) 0.0, Baso % (Auto) 0.2, Absolute Neuts (auto) 10.5 H, Absolute Lymphs (auto) 0.83, Total Counted Not Reportable 03/01/18 04:45: Sodium 145, Potassium 5.2 H, Chloride 107, Carbon Dioxide 18.0 L, Anion Gap 20 H, BUN 50 H, Creatinine 1.86 H, Estim Creat Clear Calc 32.72, Est GFR (MDRD) Af Amer 46 L, Est GFR (MDRD) Non-Af 38 L, BUN/Creatinine Ratio 26.9 H, Glucose 315 H, Calcium 8.1 L 03/01/18 06:30: POC Glucose 338 H 03/01/18 07:35: POC Glucose 297 H 03/01/18 08:37: POC Glucose 228 H 03/01/18 09:24: POC Glucose 191 H Current Medications Acetaminophen (Tylenol) 650 mg PO Q6H PRN PRN PRN Reason: Mild Pain (1-3)/Temp > 100.7 F Dextrose (D50w Syringe) 0 gm IV X1 PRN; Protocol PRN Reason: HYPOGLYCEMIA Heparin Sodium (Porcine) (Heparin Na) 5,000 unit SC Q8 SY Last Admin: 03/01/18 05:09 Dose: 5,000 unit Sodium Chloride () 250 mls @ 15 mls/hr IV .[id number] PRN PRN Reason: SALINE FLUSH Insulin Human Lispro 100 unit/ (Sodium Chloride) 100 mls @ 5.41 mls/hr IV .[id number] SY; Protocol Last Admin: 03/01/18 06:50 Dose: Not Given Dextrose/Sodium Chloride () 1,000 mls @ 150 mls/hr IV .[id number] SY Last Admin: 03/01/18 09:00 Dose: 150 mls/hr Ketorolac Tromethamine (Acular Ls) 1 drop LEFT EYE 4X/DAY PRN PRN PRN Reason: EYE PAIN Ondansetron HCl (Zofran) 4 mg IV Q6H PRN PRN PRN Reason: NAUSEA Last Admin: 02/28/18 20:29 Dose: 4 mg Prednisolone Acetate (Pred Forte Eye Drops (5 Ml)) 1 drop LEFT EYE 4X/DAY PRN PRN PRN Reason: EYE PAIN Sodium Chloride () 5 - 15 ml IV UD PRN PRN Reason: SALINE FLUSH Medical Necessity - Tobacco Use Smoking Status: Former smoker Tobacco Use: Non-smoker Assessment/Plan All Active Problems Near syncope (Resolved) DKA (diabetic ketoacidoses) (Acute) Generalized weakness (Acute) 1. DKA A1c 11.3 on 01/15 INsulin gtt stopped after only to be resumed today. Follow up BMP Continue insulin gtt Continue IVF Will likely need to increase NPH and Novolin dosings. 2. CLAUDINE presumed prerenal Improving with IVF baseline 0.95 3. DVT proph: SQ heparin. Code Visit Inpatient E&M: 15416 Subs Hosp L2
[2018-03-01 10:26] LABS: Bedside Glucose 180 mg/dL (70-110)
--- NOTE | 2018-03-01 10:26 | PN_ITS ---
Patient Problems: Active and Suspected Problems DKA (diabetic ketoacidoses) (Acute) Generalized weakness (Acute) Subjective: Feels better. No NV. States he has been taking his insulin as instructed. Vitals/I&O's: Vital Signs Temp Pulse Resp BP Pulse Ox 37.5 C H 90 18 153/45 H 99 03/01/18 08:00 03/01/18 10:00 03/01/18 10:00 03/01/18 10:00 03/01/18 10:00 Oxygen Delivery Method Room Air Weight: 54.1 kg Body Mass Index (BMI) 19.5 Finger Stick Blood Glucose 228 Intake and Output for Last 24 Hours 02/27/18 02/28/18 03/01/18 23:59 23:59 23:59 Intake Total 3100 / 3100 2578.3 / 2578.3 Balance 3100 / 3100 2578.3 / 2578.3 General: Alert, No apparent distress HEENT: Atraumatic, Normocephalic Oral: Moist Mucosa, No Gingival or Mucosal Lesions/ Ulcerations Neck: No Nodes, Thyroid Normal Size and Texture Lungs: Clear to auscultation, Normal air movement, No rhonchi, No wheeze Cardiovascular: Regular rate, Regular Rhythm, Normal S1, Normal S2, No murmurs Abdomen: Bowel Sounds Present, Soft, Non Tender, Non-Distended, No Hepato- splenomegaly Extremities: No edema, No Calf Tenderness Psych/Mental Status: Normal Affect, Appropriate Laboratory Results 02/28/18 13:24: WBC 10.6, RBC 4.80, Hgb 13.6, Hct 39.7 L, MCV 82.7, MCH 28.3, MCHC 34.3, RDW 13.0, RDW Differential 39.1, Plt Count 241, MPV 10.2, Immature Gran % (Auto) 0.100, Neut % (Auto) 83.1 H, Lymph % (Auto) 11.3 L, [place] % (Auto) 4.0, Eos % (Auto) 0.6, Baso % (Auto) 0.9, Absolute Neuts (auto) 8.8 H, Absolute Lymphs (auto) 1.20, Total Counted Not Reportable, Differential Comment SCANNED 02/28/18 13:24: Sodium 130 L, Potassium 5.2 H, Chloride 89 L, Carbon Dioxide 21 .0, Anion Gap 20 H, BUN 49 H, Creatinine 2.27 H, Estim Creat Clear Calc 26.81, Est GFR (MDRD) Af Amer 37 L, Est GFR (MDRD) Non-Af 30 L, BUN/Creatinine Ratio 21.6 H, Glucose 632 H*, Calcium 9.6, Total Bilirubin 0.80, AST 10 L, ALT 16, Alkaline Phosphatase 103, Troponin I < 0.015, Total Protein 7.4, Albumin 4.0, Globulin 3.4, Albumin/Globulin Ratio 1.2 02/28/18 13:24: Acetone Level MODERATE H 02/28/18 15:02: POC Glucose > 500 H* 02/28/18 16:12: POC Glucose 333 H 02/28/18 17:06: POC Glucose 193 H 02/28/18 17:10: Sodium 142, Potassium 4.3, Chloride 106, Carbon Dioxide 22.0, Anion Gap 14, BUN 48 H, Creatinine 1.96 H, Estim Creat Clear Calc 31.05, Est GFR (MDRD) Af Amer 44 L, Est GFR (MDRD) Non-Af 36 L, BUN/Creatinine Ratio 24.5 H, Glucose 156 H, Calcium 8.7 02/28/18 17:56: POC Glucose 130 H 02/28/18 19:15: POC Glucose 166 H 02/28/18 20:00: Sodium 142, Potassium 4.9, Chloride 106, Carbon Dioxide 21.0, Anion Gap 15, BUN 48 H, Creatinine 1.80 H, Estim Creat Clear Calc 33.81, Est GFR (MDRD) Af Amer 48 L, Est GFR (MDRD) Non-Af 40 L, BUN/Creatinine Ratio 26.7 H, Glucose 200 H, Calcium 8.3 L 02/28/18 20:06: POC Glucose 200 H 02/28/18 22:52: POC Glucose 253 H 03/01/18 04:45: WBC 11.6 H, RBC 3.88 L, Hgb 11.2 L, Hct 32.5 L, MCV 83.8, MCH 28.9, MCHC 34.5, RDW 13.3, RDW Differential 39.4, Plt Count 190, MPV 9.9, Immature Gran % (Auto) 0.200, Neut % (Auto) 90.1 H, Lymph % (Auto) 7.2 L, [place] % (Auto) 2.3, Eos % (Auto) 0.0, Baso % (Auto) 0.2, Absolute Neuts (auto) 10.5 H, Absolute Lymphs (auto) 0.83, Total Counted Not Reportable 03/01/18 04:45: Sodium 145, Potassium 5.2 H, Chloride 107, Carbon Dioxide 18.0 L , Anion Gap 20 H, BUN 50 H, Creatinine 1.86 H, Estim Creat Clear Calc 32.72, Est GFR (MDRD) Af Amer 46 L, Est GFR (MDRD) Non-Af 38 L, BUN/Creatinine Ratio 26.9 H , Glucose 315 H, Calcium 8.1 L 03/01/18 06:30: POC Glucose 338 H 03/01/18 07:35: POC Glucose 297 H 03/01/18 08:37: POC Glucose 228 H 03/01/18 09:24: POC Glucose 191 H Current Medications Acetaminophen (Tylenol) 650 mg PO Q6H PRN PRN PRN Reason: Mild Pain (1-3)/Temp > 100.7 F Dextrose (D50w Syringe) 0 gm IV X1 PRN; Protocol PRN Reason: HYPOGLYCEMIA Heparin Sodium (Porcine) (Heparin Na) 5,000 unit SC Q8 SY Last Admin: 03/01/18 05:09 Dose: 5,000 unit Sodium Chloride () 250 mls @ 15 mls/hr IV .[id number] PRN PRN Reason: SALINE FLUSH Insulin Human Lispro 100 unit/ (Sodium Chloride) 100 mls @ 5.41 mls/hr IV .[id number] SY; Protocol Last Admin: 03/01/18 06:50 Dose: Not Given Dextrose/Sodium Chloride () 1,000 mls @ 150 mls/hr IV .[id number] SY Last Admin: 03/01/18 09:00 Dose: 150 mls/hr Ketorolac Tromethamine (Acular Ls) 1 drop LEFT EYE 4X/DAY PRN PRN PRN Reason: EYE PAIN Ondansetron HCl (Zofran) 4 mg IV Q6H PRN PRN PRN Reason: NAUSEA Last Admin: 02/28/18 20:29 Dose: 4 mg Prednisolone Acetate (Pred Forte Eye Drops (5 Ml)) 1 drop LEFT EYE 4X/DAY PRN PRN PRN Reason: EYE PAIN Sodium Chloride () 5 - 15 ml IV UD PRN PRN Reason: SALINE FLUSH Medical Necessity - Tobacco Use Smoking Status: Former smoker Tobacco Use: Non-smoker Assessment/Plan All Active Problems Near syncope (Resolved) DKA (diabetic ketoacidoses) (Acute) Generalized weakness (Acute) 1. DKA * A1c 11.3 on 01/15 * INsulin gtt stopped after only to be resumed today. * Follow up BMP * Continue insulin gtt * Continue IVF * Will likely need to increase NPH and Novolin dosings. 2. CLAUDINE * presumed prerenal * Improving with IVF * baseline 0.95 3. DVT proph: SQ heparin. Code Visit Inpatient E&M: 23565 Subs Hosp L2
--- NOTE | 2018-03-01 10:38 | CON.PCM_ITS ---
Problem List (1) Near syncope Status: Resolved (2) DKA (diabetic ketoacidoses) Status: Acute Qualifiers: Diabetes mellitus type: type 2 Diabetes mellitus complication detail: without coma Qualified Code(s): E11.10 - Type 2 diabetes mellitus with ketoacidosis without coma (3) Generalized weakness Status: Acute Reason for Consult Date of Consultation: 03/01/18 Reason for Consultation: DKA History of Present Illness: The patient is a 72 year old M, with past medical history listed below, who presented to [facility] on 02/28/2018 secondary to fatigue and legs giving out. Patient reportedly had been reporting worsening fatigue, nausea and vomiting for approximately 3 days. Patient states that he had recently been placed on Norvasc secondary to hypertension. Patient had been wearing some compression stockings, but states his legs gave out. Patient did have an episode of chest pain and palpitations and suggested that this all lasted approximately 5-10 minutes. There was no trauma or loss of consciousness reported. On presentation to the emergency room, patient was noted to have a sodium of 130, potassium of 5.2 and a glucose of 632. Creatinine was elevated at 2.27 and patient was noted to have moderate serum ketones. Patient was placed on an insulin drip following 2 L of normal saline and admitted to the intensive care unit. Patient remained on the insulin drip overnight, but this was discontinued when sugars drop. This morning, patient's gap is reopened and he was placed back on insulin drip. Patient reports some mild improvement following initiation of insulin drip. Patient reports resolution of nausea and vomiting. Patient reports approximately 10-year history of diabetes mellitus. Patient states he takes NPH and sliding scale insulin. Patient reports his last hospitalization for blood sugars was in December, but appears to have poor understanding of diabetes in general. Patient reportedly is never been seen by an ceramic coater. Patient reports decreased insulin usage secondary to the development of nausea and vomiting. Patient is unable to give significant history as to recent sugars. Past Medical History Allergies No Known Allergies Allergy (Verified 01/15/18 11:57) Home Medications: Ambulatory Orders Medication Instructions Recorded Insulin Regular, Human [Novolin R] 0 unit SC 4X/DAY 01/15/18 Ketorolac Tromethamine [Acular LS] 1 drop LEFT EYE 4X/DAY 01/15/18 Prednisolone Acetate 1 drop LEFT EYE 4X/DAY 01/15/18 Insulin NPH Human [Humulin N Pen] 25 units SC BIDAC pen 01/18/18 Amlodipine [Norvasc] 5 mg PO DAILY 02/28/18 Surgical History: no surgical history Psychiatric History: No pertinent psych hx Lives: Alone Smoking Status: Former smoker Tobacco Use: Non-smoker Alcohol: None Drugs: None - *Family History Maternal History Items: Unknown - patient adopted Paternal History Items: Unknown - patient adopted Sibling History Items: Unknown - patient adopted Review of Systems Comment: See HPI, otherwise negative x10 systems. Patient Problems: Active and Suspected Problems DKA (diabetic ketoacidoses) (Acute) Generalized weakness (Acute) - Physical Exam General: Alert, Oriented x3, Cooperative, No apparent distress, - - Appears older than stated age. Thin build. No conversational dyspnea appreciated. HEENT: Atraumatic, PERRLA, EOMI, Normocephalic, - - Mild temporal wasting Oral: No Gingival or Mucosal Lesions/ Ulcerations, Dry Mucosa Neck: Supple, No JVD, No Nodes, Trachea Midline Lungs: No rhonchi, No wheeze, No rales, Diminished, - - Symmetric expansion. No dullness to percussion. Cardiovascular: Regular rate, Regular Rhythm, Normal S1, Normal S2, No murmurs, No rub noted, No Gallop Abdomen: Bowel Sounds Present, Soft, Non Tender, Non-Distended Extremities: No clubbing, No cyanosis, No edema, Capillary Refill Less than 3 Seconds Skin: No rashes, No breakdown Musculoskeletal: No Tenderness to Palpation of Joints or Extremities Lymphatic: No Cervical, Supraclavicular, or Inguinal Adenopathy Neurological: Cranial nerves II-XII grossly intact, Neuro grossly intact, Motor Exam 5/5 strength throughout Psych/Mental Status: Alert and oriented to time, place, person, mood and affect Vital Signs Temp Pulse Resp BP Pulse Ox 37.5 C H 90 18 153/45 H 99 03/01/18 08:00 03/01/18 10:00 03/01/18 10:00 03/01/18 10:00 03/01/18 10:00 Oxygen Delivery Method Room Air Weight: 54.1 kg Body Mass Index (BMI) 19.5 Finger Stick Blood Glucose 228 Intake and Output for Last 24 Hours 02/27/18 02/28/18 03/01/18 23:59 23:59 23:59 Intake Total 3100 / 3100 2578.3 / 2578.3 Balance 3100 / 3100 2578.3 / 2578.3 Laboratory Tests Past 24 Hrs 02/28/18 02/28/18 02/28/18 13:24 13:24 13:24 WBC 10.6 RBC 4.80 Hgb 13.6 Hct 39.7 L MCV 82.7 MCH 28.3 MCHC 34.3 RDW 13.0 RDW Differential 39.1 Plt Count 241 MPV 10.2 Immature Gran % (Auto) 0.100 Neut % (Auto) 83.1 H Lymph % (Auto) 11.3 L [place] % (Auto) 4.0 Eos % (Auto) 0.6 Baso % (Auto) 0.9 Absolute Neuts (auto) 8.8 H Absolute Lymphs (auto) 1.20 Total Counted Not Reportable Differential Comment SCANNED Sodium 130 L Potassium 5.2 H Chloride 89 L Carbon Dioxide 21.0 Anion Gap 20 H BUN 49 H Creatinine 2.27 H Estim Creat Clear Calc 26.81 Est GFR (MDRD) Af Amer 37 L Est GFR (MDRD) Non-Af 30 L BUN/Creatinine Ratio 21.6 H Glucose 632 H* Calcium 9.6 Total Bilirubin 0.80 AST 10 L ALT 16 Alkaline Phosphatase 103 Troponin I < 0.015 Total Protein 7.4 Albumin 4.0 Globulin 3.4 Albumin/Globulin Ratio 1.2 Acetone Level MODERATE H 02/28/18 02/28/18 03/01/18 17:10 20:00 04:45 WBC 11.6 H RBC 3.88 L Hgb 11.2 L Hct 32.5 L MCV 83.8 MCH 28.9 MCHC 34.5 RDW 13.3 RDW Differential 39.4 Plt Count 190 MPV 9.9 Immature Gran % (Auto) 0.200 Neut % (Auto) 90.1 H Lymph % (Auto) 7.2 L [place] % (Auto) 2.3 Eos % (Auto) 0.0 Baso % (Auto) 0.2 Absolute Neuts (auto) 10.5 H Absolute Lymphs (auto) 0.83 Total Counted Not Reportable Differential Comment Sodium 142 142 Potassium 4.3 4.9 Chloride 106 106 Carbon Dioxide 22.0 21.0 Anion Gap 14 15 BUN 48 H 48 H Creatinine 1.96 H 1.80 H Estim Creat Clear Calc 31.05 33.81 Est GFR (MDRD) Af Amer 44 L 48 L Est GFR (MDRD) Non-Af 36 L 40 L BUN/Creatinine Ratio 24.5 H 26.7 H Glucose 156 H 200 H Calcium 8.7 8.3 L Total Bilirubin AST ALT Alkaline Phosphatase Troponin I Total Protein Albumin Globulin Albumin/Globulin Ratio Acetone Level 03/01/18 04:45 WBC RBC Hgb Hct MCV MCH MCHC RDW RDW Differential Plt Count MPV Immature Gran % (Auto) Neut % (Auto) Lymph % (Auto) [place] % (Auto) Eos % (Auto) Baso % (Auto) Absolute Neuts (auto) Absolute Lymphs (auto) Total Counted Differential Comment Sodium 145 Potassium 5.2 H Chloride 107 Carbon Dioxide 18.0 L Anion Gap 20 H BUN 50 H Creatinine 1.86 H Estim Creat Clear Calc 32.72 Est GFR (MDRD) Af Amer 46 L Est GFR (MDRD) Non-Af 38 L BUN/Creatinine Ratio 26.9 H Glucose 315 H Calcium 8.1 L Total Bilirubin AST ALT Alkaline Phosphatase Troponin I Total Protein Albumin Globulin Albumin/Globulin Ratio Acetone Level POC Glucose 03/01/18 03/01/18 03/01/18 09:24 08:37 07:35 POC Glucose 191 H 228 H 297 H 03/01/18 02/28/18 02/28/18 06:30 22:52 20:06 POC Glucose 338 H 253 H 200 H 02/28/18 02/28/18 02/28/18 19:15 17:56 17:06 POC Glucose 166 H 130 H 193 H 02/28/18 02/28/18 16:12 15:02 POC Glucose 333 H > 500 H* Assessment/Plan Active and Suspected Problems DKA (diabetic ketoacidoses) (Acute) Generalized weakness (Acute) RECOMMENDATIONS: 1. Continue insulin drip per DKA protocol 2. Diabetic education 3. N.p.o. until off of insulin drip 4. No repeat hemoglobin A1c is likely indicated 5. Continue aggressive fluid resuscitation IMPRESSIONS: 1. Diabetic ketoacidosis Appears to have poor insight into the overall disease process. Patient is back on DKA protocol. We will continue to monitor. May need to increase NPH dosing. Patient reports to me that he had not taken his insulin recently secondary to nausea and vomiting. Patient does not appear to have another secondary cause. Patient would benefit from outpatient follow-up with endocrinology and possible transition to Lantus/Levemir therapy. 2. Acute kidney injury secondary to DKA Patient has a baseline creatinine of 0.95. Patient's presentation creatinine of 2.27. Patient appears to be responding to fluid resuscitation. We will continue with aggressive fluid resuscitation. Patient may need to be transition to LR to avoid hyperchloremia and hypernatremia. 3. Advanced age/poor insight/reported hypertension Complicates care, management, recovery and prognosis. Blood pressure is appropriate at this time. Code Visit Inpatient E&M: 81077 Init Hosp L2
[2018-03-01 11:21] LABS: Anion Gap 15 (5-15); BUN 47 mg/dL (7-18); BUN/Creat Ratio 25.7 RATIO (10-20); Calcium,Total 8.1 mg/dL (8.5-10.1); Chloride 109 mmol/L (98-107); Creatinine, Serum 1.83 mg/dL (0.70-1.30); EST Glomerular Filtration Rate 39 mL/min (>60); Est Glom Filt Rate - Afr Amer 47 mL/min (>60); Estimated Creatinine Clearance 28.33 ml/min; Glucose 186 mg/dL (74-106); Potassium 3.9 mmol/L (3.5-5.1); Sodium Level 148 mmol/L (136-145)
--- NOTE | 2018-03-01 12:25 | CASEMGMT ---
Addendum entered by Moses Sanders 03/01/18 13:01: Pt did confirm demographics and confirmed he has MCR. Does not have supplemental insurance or prescription coverage. Original Note: ARIANA RAHMAN INITIAL ASSESSMENT: Face to Face with patient for initial transition planning/care coordination assessment. ARIANA RAHMAN introduced self and role at [facility]. Pt confirmed demographics and insurance only and then stated, What are you doing asking all these questions? Hit the door. You're done. Leave me alone. Then he took his blanket and put it over his head. Per RNJudy, she states thinks pt would benefit from [facility]. CM to attempt assessment at a later time for discharge planning. Christina LANIER RN, CM
[2018-03-01 12:36] LABS: Bedside Glucose 174 mg/dL (70-110)
[2018-03-01 14:36] LABS: Bedside Glucose 144 mg/dL (70-110)
[2018-03-01] MEDS: 0.9% NaCl Peripheral Flush Adult/Peds IV ×2 (14:37→14:38)
[2018-03-01 15:01] LABS: Anion Gap 9 (5-15); BUN 45 mg/dL (7-18); BUN/Creat Ratio 24.1 RATIO (10-20); Chloride 111 mmol/L (98-107); Creatinine, Serum 1.87 mg/dL (0.70-1.30); EST Glomerular Filtration Rate 38 mL/min (>60); Est Glom Filt Rate - Afr Amer 46 mL/min (>60); Estimated Creatinine Clearance 27.73 ml/min; Glucose 143 mg/dL (74-106); Sodium Level 147 mmol/L (136-145)
[2018-03-01] MEDS: Insulin NPH Human 100 UNITS/ML PEN 15 UNITS SC (15:49)
[2018-03-01 16:01] LABS: Bedside Glucose 110 mg/dL (70-110)
[2018-03-01] MEDS: amLODIPine 5 MG Tablet PO (16:59)
[2018-03-01 23:01] LABS: Bedside Glucose 109 mg/dL (70-110)
[2018-03-02 04:20] VITALS: BP 164/79; PULSE 85; RESP 18; TEMP 37; O2SAT 100
[2018-03-02 06:06] LABS: Anion Gap 8 (5-15); BUN 29 mg/dL (7-18); BUN/Creat Ratio 22.3 RATIO (10-20); Calcium,Total 7.9 mg/dL (8.5-10.1); Chloride 110 mmol/L (98-107); EST Glomerular Filtration Rate 58 mL/min (>60); Est Glom Filt Rate - Afr Amer 70 mL/min (>60); Estimated Creatinine Clearance 39.88 ml/min; Glucose 140 mg/dL (74-106); Potassium 3.6 mmol/L (3.5-5.1); Sodium Level 145 mmol/L (136-145)
[2018-03-02 06:09] VITALS: BP 156/75
[2018-03-02] MEDS: Heparin Injection (Vial) 5,000 UNIT/ML VIAL 5000 UNIT SC (06:11)
[2018-03-02] MEDS: Insulin NPH Human 100 UNITS/ML PEN 30 UNITS SC (08:35)
[2018-03-02] MEDS: Insulin Lispro 100 UNIT/ML INSULN.PEN SC ×2 (08:37→11:26)
[2018-03-02] MEDS: Insulin Lispro 100 UNIT/ML INSULN.PEN 8 UNIT SC ×2 (08:38→11:26)
[2018-03-02] MEDS: amLODIPine 5 MG Tablet PO (08:41)
[2018-03-02 09:50] VITALS: BP 153/87; PULSE 76; RESP 18; TEMP 36.8; O2SAT 98
--- NOTE | 2018-03-02 10:06 | DCINST_ITS ---
- Discharge Diagnoses Current Active Problems: Current Active and Chronic Problems DKA (diabetic ketoacidoses) (Acute) Generalized weakness (Acute) You will use the following diet at home:: Calorie/Carbohydrate Controlled (specify 1200, 1400, etc) - 1800 calories/day. Your food should be the consistency of: Regular Your liquids should be the consistency of: Regular/Thin Discharge Activity: Return to Normal Activity Instructions: Diabetes: Inspecting Your Feet, Diabetes: Keeping Feet Healthy, Diabetes: Sick-Day Plan, Diabetes: Activity Tips, Diabetes: Understanding Carbohydrates, Fats, and Protein, Diabetes: Ways to Take Medication, Managing Stress When You Have Diabetes, Getting Support When You Have Diabetes Additional Instructions: check your blood surgar with meals and as needed. Allergies/Adverse Reactions: Allergies No Known Allergies Allergy (Verified 01/15/18 11:57) Medications to take at Discharge Insulin Regular, Human [Novolin R] 0 unit SC 4X/DAY 01/15/18 Ketorolac Tromethamine [Acular LS] 1 drop LEFT EYE 4X/DAY 01/15/18 Prednisolone Acetate 1 drop LEFT EYE 4X/DAY 01/15/18 Amlodipine [Norvasc] 5 mg PO DAILY #30 tablet 03/02/18 Insulin NPH Human [Humulin N Pen] 20 units SC BIDAC #0 pen 03/02/18 The following prescriptions were given: Amlodipine [Norvasc] 5 mg PO DAILY #30 tablet Primary Care Physician: Deepak Valerio MD [Primary Care Provider] - Within 1 Week Test Results: Test results from this visit will be discussed in further detail at your follow- up appointment, if applicable. Proposed Discharge Date: 03/02/18
--- NOTE | 2018-03-02 10:06 | PCM.DC.SUM ---
Discharge Date and Diagnosis - Problem List Patient Problems: Active and Suspected Problems DKA (diabetic ketoacidoses) (Acute) Date of Admission: 02/28/18 Date of Discharge: 03/02/18 - Primary Discharge Diagnosis Active and Suspected Problems DKA (diabetic ketoacidoses) (Acute) Hospital Course and Treatment Operations: None Procedures: None Summary of Care Provided: The patient is a 72 year old M presents with generalized weakness. Patient was found to have a glucose of 632 with positive anion gap and positive acetones. Patient was in DKA. Patient is a type I diabetic. Patient states that he had been feeling ill and run down and been sleeping for most of the day and was only checked his blood sugar once daily and was getting readings up into 500 range. Normally, patient states that his blood sugars are no higher than the 130s though he did not endorse that occasionally gets in the 300s after he eats. The patient states that he has been very well controlled on his regimen of 30 units of NPH and sliding scale of regular insulin. Patient was started on an insulin drip while he was here and then to basal insulin once after 2 normal anion gap but subsequent anion gap came back positive so again was put back on insulin drip on the . It was discontinued again on the and patient has remained stable on insulin. Patient stated that he had been increased to 25 units of NPH last night but that caused hypoglycemia with blood sugar into the 30s and has resumed back on his 20 units. Is my feeling that patient with what sounds like an illness likely developed DKA due to that. Patient is feeling well at this point time his blood sugars are controlled and patient can be discharged home today. Patient did have acute kidney injury with a creatinine of 1.96, is now down to 1.3. Spelled this likely prerenal in etiology. [] Patient Problems: Active and Suspected Problems DKA (diabetic ketoacidoses) (Acute) - Physical Exam General: Alert, Cooperative, No apparent distress HEENT: Atraumatic, Normocephalic Psych/Mental Status: Normal Affect, Appropriate Vital Signs Temp Pulse Resp BP Pulse Ox 36.8 C 76 18 153/87 H 98 03/02/18 09:50 03/02/18 09:50 03/02/18 09:50 03/02/18 09:50 03/02/18 09:50 Oxygen Delivery Method Room Air Weight: 54.3 kg Body Mass Index (BMI) 19.5 Finger Stick Blood Glucose 110 Intake and Output for Last 24 Hours 02/28/18 03/01/18 03/02/18 23:59 23:59 23:59 Intake Total 3100 / 3100 3882.3 / 3882.3 870 / 870 Output Total 800 / 800 650 / 650 Balance 3100 / 3100 3082.3 / 3082.3 220 / 220 Laboratory Tests Past 24 Hrs 03/01/18 03/01/18 03/02/18 10:30 14:35 05:44 Sodium 148 H 147 H 145 Potassium 3.9 4.0 3.6 Chloride 109 H 111 H 110 H Carbon Dioxide 24.0 27.0 27.0 Anion Gap 15 9 8 BUN 47 H 45 H 29 H Creatinine 1.83 H 1.87 H 1.30 Estim Creat Clear Calc 28.33 27.73 39.88 Est GFR (MDRD) Af Amer 47 L 46 L 70 Est GFR (MDRD) Non-Af 39 L 38 L 58 L BUN/Creatinine Ratio 25.7 H 24.1 H 22.3 H Glucose 186 H 143 H 140 H Calcium 8.1 L 8.0 L 7.9 L POC Glucose 03/01/18 03/01/18 03/01/18 22:27 15:53 14:29 POC Glucose 109 110 144 H 03/01/18 03/01/18 12:29 10:17 POC Glucose 174 H 180 H Discharge Diet: 1800 Calorie Control Diet Discharge Activity: Return to Normal Activity Call your doctor if you observe: - - uncontrolled blood sugars (sustained over 300). Home Medications: Medications to take at Discharge Insulin Regular, Human [Novolin R] 0 unit SC 4X/DAY 01/15/18 Ketorolac Tromethamine [Acular LS] 1 drop LEFT EYE 4X/DAY 01/15/18 Prednisolone Acetate 1 drop LEFT EYE 4X/DAY 01/15/18 Amlodipine [Norvasc] 5 mg PO DAILY #30 tablet 03/02/18 Insulin NPH Human [Humulin N Pen] 20 units SC BIDAC #0 pen 03/02/18 Following Prescrptions Were Given to Patient: Amlodipine [Norvasc] 5 mg PO DAILY #30 tablet Primary Care Physician: Deepak Valerio MD [Primary Care Provider] - Within 1 Week Patient Instructions: Diabetes: Keeping Feet Healthy, Diabetes: Inspecting Your Feet, Diabetes: Sick-Day Plan, Diabetes: Activity Tips, Diabetes: Understanding Carbohydrates, Fats, and Protein, Diabetes: Ways to Take Medication, Getting Support When You Have Diabetes, Managing Stress When You Have Diabetes Disposition: Home Minutes spent on discharge:: 32 Patient Condition:: Good Medical Necessity - Tobacco Use Smoking Status: Former smoker Tobacco Use: Non-smoker Meaningful Use Info Meaningful Use Diagnoses (Choose all that apply): None applicable Code Visit Inpatient E&M: 43330 Disch Hosp
[2018-03-02 11:40] LABS: Bedside Glucose 191 mg/dL (70-110)
--- NOTE | 2018-03-02 11:46 | CASEMGMT ---
ARIANA RAHMAN in to see patient regarding HHC. Patient denied need and would talk to daughter after he goes home. Patient has follow-up appt with PCP on . ARIANA RAHMAN informed patient that if he changes mind and would like HHC, he can request HHC from PCP. Patient voiced understanding and denied further needs.
--- NOTE | 2018-03-02 11:51 | PN_ITS ---
Subjective: Late entry Patient transferred out of the intensive care unit yesterday. No acute issues reported overnight. Patient is reporting significant improvement in nausea and vomiting. Patient's blood pressure has been somewhat elevated, but no headache or other neurologic issues have been reported. General: Alert, Oriented x3, Cooperative, No apparent distress, Well developed, Well nourished, - - Speaking in full sentences HEENT: Atraumatic, PERRLA, EOMI, Normocephalic, - - No scleral icterus or injection noted. Oral: Moist Mucosa, No Gingival or Mucosal Lesions/ Ulcerations Neck: Supple, No JVD, No Nodes, Trachea Midline Lungs: Clear to auscultation, Normal air movement, No rhonchi, No wheeze, No rales Cardiovascular: Regular rate, Regular Rhythm, Normal S1, Normal S2, No murmurs, No rub noted, No Gallop Abdomen: Bowel Sounds Present, Soft, Non Tender, Non-Distended Extremities: No clubbing, No cyanosis, No edema, Capillary Refill Less than 3 Seconds Skin: No rashes, No breakdown Lymphatic: No Cervical, Supraclavicular, or Inguinal Adenopathy Neurological: Cranial nerves II-XII grossly intact, Neuro grossly intact, Motor Exam 5/5 strength throughout Psych/Mental Status: Alert and oriented to time, place, person, mood and affect Vital Signs Temp Pulse Resp BP Pulse Ox 36.8 C 76 18 153/87 H 98 03/02/18 09:50 03/02/18 09:50 03/02/18 09:50 03/02/18 09:50 03/02/18 09:50 Oxygen Delivery Method Room Air Weight: 54.3 kg Body Mass Index (BMI) 19.5 Finger Stick Blood Glucose 110 Intake and Output for Last 24 Hours 02/28/18 03/01/18 03/02/18 23:59 23:59 23:59 Intake Total 3100 / 3100 3882.3 / 3882.3 1230 / 1230 Output Total 800 / 800 950 / 950 Balance 3100 / 3100 3082.3 / 3082.3 280 / 280 Labs (Last 48 Hours) 02/28/18 02/28/18 02/28/18 13:24 13:24 13:24 WBC 10.6 RBC 4.80 Hgb 13.6 Hct 39.7 L MCV 82.7 MCH 28.3 MCHC 34.3 RDW 13.0 RDW Differential 39.1 Plt Count 241 MPV 10.2 Immature Gran % (Auto) 0.100 Neut % (Auto) 83.1 H Lymph % (Auto) 11.3 L Tyrrell % (Auto) 4.0 Eos % (Auto) 0.6 Baso % (Auto) 0.9 Absolute Neuts (auto) 8.8 H Absolute Lymphs (auto) 1.20 Total Counted Not Reportable Differential Comment SCANNED Sodium 130 L Potassium 5.2 H Chloride 89 L Carbon Dioxide 21.0 Anion Gap 20 H BUN 49 H Creatinine 2.27 H Estim Creat Clear Calc 26.81 Est GFR (MDRD) Af Amer 37 L Est GFR (MDRD) Non-Af 30 L BUN/Creatinine Ratio 21.6 H Glucose 632 H* Calcium 9.6 Total Bilirubin 0.80 AST 10 L ALT 16 Alkaline Phosphatase 103 Troponin I < 0.015 Total Protein 7.4 Albumin 4.0 Globulin 3.4 Albumin/Globulin Ratio 1.2 Acetone Level MODERATE H POC Glucose 02/28/18 02/28/18 02/28/18 15:02 16:12 17:06 WBC RBC Hgb Hct MCV MCH MCHC RDW RDW Differential Plt Count MPV Immature Gran % (Auto) Neut % (Auto) Lymph % (Auto) Tyrrell % (Auto) Eos % (Auto) Baso % (Auto) Absolute Neuts (auto) Absolute Lymphs (auto) Total Counted Differential Comment Sodium Potassium Chloride Carbon Dioxide Anion Gap BUN Creatinine Estim Creat Clear Calc Est GFR (MDRD) Af Amer Est GFR (MDRD) Non-Af BUN/Creatinine Ratio Glucose Calcium Total Bilirubin AST ALT Alkaline Phosphatase Troponin I Total Protein Albumin Globulin Albumin/Globulin Ratio Acetone Level POC Glucose > 500 H* 333 H 193 H 02/28/18 02/28/18 02/28/18 17:10 17:56 19:15 WBC RBC Hgb Hct MCV MCH MCHC RDW RDW Differential Plt Count MPV Immature Gran % (Auto) Neut % (Auto) Lymph % (Auto) Tyrrell % (Auto) Eos % (Auto) Baso % (Auto) Absolute Neuts (auto) Absolute Lymphs (auto) Total Counted Differential Comment Sodium 142 Potassium 4.3 Chloride 106 Carbon Dioxide 22.0 Anion Gap 14 BUN 48 H Creatinine 1.96 H Estim Creat Clear Calc 31.05 Est GFR (MDRD) Af Amer 44 L Est GFR (MDRD) Non-Af 36 L BUN/Creatinine Ratio 24.5 H Glucose 156 H Calcium 8.7 Total Bilirubin AST ALT Alkaline Phosphatase Troponin I Total Protein Albumin Globulin Albumin/Globulin Ratio Acetone Level POC Glucose 130 H 166 H 02/28/18 02/28/18 02/28/18 20:00 20:06 22:52 WBC RBC Hgb Hct MCV MCH MCHC RDW RDW Differential Plt Count MPV Immature Gran % (Auto) Neut % (Auto) Lymph % (Auto) Tyrrell % (Auto) Eos % (Auto) Baso % (Auto) Absolute Neuts (auto) Absolute Lymphs (auto) Total Counted Differential Comment Sodium 142 Potassium 4.9 Chloride 106 Carbon Dioxide 21.0 Anion Gap 15 BUN 48 H Creatinine 1.80 H Estim Creat Clear Calc 33.81 Est GFR (MDRD) Af Amer 48 L Est GFR (MDRD) Non-Af 40 L BUN/Creatinine Ratio 26.7 H Glucose 200 H Calcium 8.3 L Total Bilirubin AST ALT Alkaline Phosphatase Troponin I Total Protein Albumin Globulin Albumin/Globulin Ratio Acetone Level POC Glucose 200 H 253 H 03/01/18 03/01/18 03/01/18 04:45 04:45 06:30 WBC 11.6 H RBC 3.88 L Hgb 11.2 L Hct 32.5 L MCV 83.8 MCH 28.9 MCHC 34.5 RDW 13.3 RDW Differential 39.4 Plt Count 190 MPV 9.9 Immature Gran % (Auto) 0.200 Neut % (Auto) 90.1 H Lymph % (Auto) 7.2 L Tyrrell % (Auto) 2.3 Eos % (Auto) 0.0 Baso % (Auto) 0.2 Absolute Neuts (auto) 10.5 H Absolute Lymphs (auto) 0.83 Total Counted Not Reportable Differential Comment Sodium 145 Potassium 5.2 H Chloride 107 Carbon Dioxide 18.0 L Anion Gap 20 H BUN 50 H Creatinine 1.86 H Estim Creat Clear Calc 32.72 Est GFR (MDRD) Af Amer 46 L Est GFR (MDRD) Non-Af 38 L BUN/Creatinine Ratio 26.9 H Glucose 315 H Calcium 8.1 L Total Bilirubin AST ALT Alkaline Phosphatase Troponin I Total Protein Albumin Globulin Albumin/Globulin Ratio Acetone Level POC Glucose 338 H 03/01/18 03/01/18 03/01/18 07:35 08:37 09:24 WBC RBC Hgb Hct MCV MCH MCHC RDW RDW Differential Plt Count MPV Immature Gran % (Auto) Neut % (Auto) Lymph % (Auto) Tyrrell % (Auto) Eos % (Auto) Baso % (Auto) Absolute Neuts (auto) Absolute Lymphs (auto) Total Counted Differential Comment Sodium Potassium Chloride Carbon Dioxide Anion Gap BUN Creatinine Estim Creat Clear Calc Est GFR (MDRD) Af Amer Est GFR (MDRD) Non-Af BUN/Creatinine Ratio Glucose Calcium Total Bilirubin AST ALT Alkaline Phosphatase Troponin I Total Protein Albumin Globulin Albumin/Globulin Ratio Acetone Level POC Glucose 297 H 228 H 191 H 03/01/18 03/01/18 03/01/18 10:17 10:30 12:29 WBC RBC Hgb Hct MCV MCH MCHC RDW RDW Differential Plt Count MPV Immature Gran % (Auto) Neut % (Auto) Lymph % (Auto) Tyrrell % (Auto) Eos % (Auto) Baso % (Auto) Absolute Neuts (auto) Absolute Lymphs (auto) Total Counted Differential Comment Sodium 148 H Potassium 3.9 Chloride 109 H Carbon Dioxide 24.0 Anion Gap 15 BUN 47 H Creatinine 1.83 H Estim Creat Clear Calc 28.33 Est GFR (MDRD) Af Amer 47 L Est GFR (MDRD) Non-Af 39 L BUN/Creatinine Ratio 25.7 H Glucose 186 H Calcium 8.1 L Total Bilirubin AST ALT Alkaline Phosphatase Troponin I Total Protein Albumin Globulin Albumin/Globulin Ratio Acetone Level POC Glucose 180 H 174 H 03/01/18 03/01/18 03/01/18 14:29 14:35 15:53 WBC RBC Hgb Hct MCV MCH MCHC RDW RDW Differential Plt Count MPV Immature Gran % (Auto) Neut % (Auto) Lymph % (Auto) Tyrrell % (Auto) Eos % (Auto) Baso % (Auto) Absolute Neuts (auto) Absolute Lymphs (auto) Total Counted Differential Comment Sodium 147 H Potassium 4.0 Chloride 111 H Carbon Dioxide 27.0 Anion Gap 9 BUN 45 H Creatinine 1.87 H Estim Creat Clear Calc 27.73 Est GFR (MDRD) Af Amer 46 L Est GFR (MDRD) Non-Af 38 L BUN/Creatinine Ratio 24.1 H Glucose 143 H Calcium 8.0 L Total Bilirubin AST ALT Alkaline Phosphatase Troponin I Total Protein Albumin Globulin Albumin/Globulin Ratio Acetone Level POC Glucose 144 H 110 03/01/18 03/02/18 03/02/18 22:27 05:44 11:23 WBC RBC Hgb Hct MCV MCH MCHC RDW RDW Differential Plt Count MPV Immature Gran % (Auto) Neut % (Auto) Lymph % (Auto) Tyrrell % (Auto) Eos % (Auto) Baso % (Auto) Absolute Neuts (auto) Absolute Lymphs (auto) Total Counted Differential Comment Sodium 145 Potassium 3.6 Chloride 110 H Carbon Dioxide 27.0 Anion Gap 8 BUN 29 H Creatinine 1.30 Estim Creat Clear Calc 39.88 Est GFR (MDRD) Af Amer 70 Est GFR (MDRD) Non-Af 58 L BUN/Creatinine Ratio 22.3 H Glucose 140 H Calcium 7.9 L Total Bilirubin AST ALT Alkaline Phosphatase Troponin I Total Protein Albumin Globulin Albumin/Globulin Ratio Acetone Level POC Glucose 109 191 H Medical Necessity - Tobacco Use Smoking Status: Former smoker Tobacco Use: Non-smoker Assessment/Plan All Active Problems Near syncope (Resolved) DKA (diabetic ketoacidoses) (Acute) Generalized weakness (Resolved) RECOMMENDATIONS: 1. DKA has resolved. 2. Diabetic education 3. Okay to discharge from my perspective 4. Recommend outpatient follow-up with endocrinology IMPRESSIONS: 1. Diabetic ketoacidosis Appears to have poor insight into the overall disease process. Patient was transitioned to long-acting insulin yesterday. Patient's morning labs are appropriate. Renal function continues to improve with hydration. Patient would benefit from a repeat chemistry panel in the next week to ensure normalization of renal function. Okay to discharge from my perspective. 2. Acute kidney injury secondary to DKA Patient has a baseline creatinine of 0.95. Patient's presentation creatinine of 2.27. Patient appears to be responding to fluid resuscitation. We will continue with aggressive fluid resuscitation. Patient may need to be transition to LR to avoid hyperchloremia and hypernatremia. 3. Advanced age/poor insight/reported hypertension Complicates care, management, recovery and prognosis. Blood pressure is a ppropriate at this time. Code Visit Inpatient E&M: 03346 Subs Hosp L2
[2018-03-02 14:16] LABS: Bedside Glucose 251 mg/dL (70-110)
[2018-03-02 14:16] LABS: Bedside Glucose 223 mg/dL (70-110)
--- NOTE | 2018-03-03 15:17 | CASEMGMT ---
ARIANA RAHMAN Discharge Follow-Up Phone Call. LACE: 12 Strata: 3 Discharge Date: 03-02-18 Adm Dx: DKA Attempted to reach pt via cell phone at this time without success. Unable to leave message at this time as pt has no way to leave message d/t voicemail is not set up yet on his cell phone. Christina LANIER RN CM
== END 2018-03-02 13:39 | disposition home or self-care (01) | DRG 638 ==
LOC: ED 13:44 → ICU 15:01 → MS3 03-01 17:21
PROVIDERS: Family Medicine; Internal Medicine Critical Care Medicine; Admitting Provider Internal Medicine; Emergency Provider Emergency Medicine; Family Provider Family Medicine; PCP Family Medicine; Referring Provider Internal Medicine
DX: E10.10 Type 1 diabetes mellitus with ketoacidosis without coma (principal); N17.9 Acute kidney failure, unspecified; E86.0 Dehydration; I10 Essential (primary) hypertension; E10.319 Type 1 diabetes mellitus with unspecified diabetic retinopathy without macular edema; Z79.4 Long term (current) use of insulin; Z87.891 Personal history of nicotine dependence
CPT/HCPCS: 36415; 80048; 80053; 82009; 82962; 84484; 85025; 93005; 97161; 97165; 97802; 99285; J7030; A4216; J2405; J7799